=== PATIENT | female | born 1960 | race Hispanic/Latino ===

== ENCOUNTER 2016-11-24 13:57 | Emergency (ER) | payer MEDICARE ==
[2016-11-24 13:57] VITALS: BMI 36.9
[2016-11-24 14:47] VITALS: BP 156/91; TEMP 98.2
[2016-11-24] MEDS ORDERED: Albuterol-Ipratrop 3 mg / 0.5 (3 ml) UD ONE (15:20)
[2016-11-24] MEDS: Albuterol-Ipratrop 3 mg / 0.5 (3 ml) UD IH SCH ×2 (15:21→15:30)
[2016-11-24 15:31] LABS: BASO % 0.4 % (0.0-2.0); EOS # 0.3 K/uL (0.0-0.7); HEMATOCRIT 36.4 % (34.0-47.0); LYMPH # 2.3 K/uL (1.0-4.3); LYMPH % 25.1 % (20.0-40.0); MEAN CORPUSCULAR HEMOGLOBIN 26.7 pg (27.0-31.0); MEAN CORPUSCULAR HGB CONC 31.9 g/dL (33.0-37.0); MONO # 0.6 K/uL (0.0-0.8); MONO % 6.9 % (0.0-10.0); RED CELL DISTRIBUTION WIDTH 14.3 % (11.5-14.5); WHITE BLOOD COUNT 9.2 K/uL (4.8-10.8)
[2016-11-24 15:32] VITALS: RESP 20
[2016-11-24 15:36] LABS: MEAN CELL VOLUME 83.8 fL (81.0-99.0)
[2016-11-24 15:45] LABS: CHLORIDE 106 mmol/L (98-107); POTASSIUM 3.9 mmol/L (3.6-5.2); SODIUM 140 mmol/L (132-148)
[2016-11-24 15:48] LABS: ALKALINE PHOSPHATASE 144 U/L (38-126); ALT/SGPT 74 U/L (9-52); AST/SGOT 60 U/L (14-36); BILIRUBIN,TOTAL 0.5 mg/dL (0.2-1.3); BLOOD UREA NITROGEN 11 mg/dL (7-17); CARBON DIOXIDE 22 mmol/L (22-30); GFR AFRICAN-AMERICAN > 60; GLUCOSE,RANDOM 83 mg/dL (65-105)
[2016-11-24 15:49] LABS: CALCIUM 9.2 mg/dl (8.6-10.4)
--- NOTE | 2016-11-24 15:50 | C.PDOC ---
History Of Present Illness 56 year old female whose past medical history includes anemia, anxiety, hypertension, COPD, diabetes, presents to the emergency department complaining of shortness of breath and cough with associated chest pain that has been occurring intermittently for the past 2 weeks and worsened the past 2 days. Patient states she was seen by her PCP last week and sent for CT of chest, is awaiting the results. Denies any fever, chills, night sweats, dizziness, numbness or weakness. Time Seen by Provider: 11/24/16 15:06 Chief Complaint (Nursing): Chest Pain History Per: Patient History/Exam Limitations: no limitations Onset/Duration Of Symptoms: Days Current Symptoms Are (Timing): Worse Current Respiratory Medications: None Severity: Moderate Associated Symptoms: denies: Fever, Chills, Dizziness Recent travel outside of the [place]: No Past Medical History Reviewed: Historical Data, Nursing Documentation, Vital Signs Vital Signs: Last Vital Signs Temp 98.2 F 11/24/16 14:44 Pulse 85 11/24/16 17:08 Resp 20 11/24/16 17:08 BP 156/91 H 11/24/16 14:44 Pulse Ox 97 11/24/16 17:08 - Medical History PMH: Anemia, Anxiety, Asthma, Bipolar Disorder, Bronchitis, COPD, Depression, Diabetes, Emphysema, Gastritis, HTN, Hypercholesterolemia, Hypothyroidism, Malignancy (uterine and breast ca) Surgical History: Cholecystectomy - [facility] Procedures CHOLECYSTECTOMY (12/21/13) ENDOSCOPIC BRONCHIAL BX (06/26/14) ESOPHAGOGASTRODUODENOSCOPY [EGD] W/CLOSED BIOPSY (12/11/13) INDIVID PSYCHOTHERAP NEC (12/25/14) NON-INVASIVE MECHANICAL VENTILATION (07/24/13) OP RED-INT FIX TIB/FIBUL (07/24/13) OPEN ROBOTIC ASSISTED PROCEDURE (12/21/13) OTHER BRONCHOSCOPY (04/03/13) OTHER GROUP THERAPY (12/25/14) PSYCHIAT DRUG THERAP NEC (01/07/15) Family History: States: Unknown Family Hx - Social History Hx Tobacco Use: No Hx Alcohol Use: Yes Hx Substance Use: No - Immunization History Hx Tetanus Toxoid Vaccination: No Hx Influenza Vaccination: No Hx Pneumococcal Vaccination: Yes Review Of Systems Constitutional: Negative for: Fever, Chills, Sweats Cardiovascular: Positive for: Chest Pain Respiratory: Positive for: Cough, Shortness of Breath Neurological: Negative for: Weakness, Numbness, Dizziness Physical Exam - Physical Exam Appears: Non-toxic, No Acute Distress Skin: Warm, Dry, No Rash Head: Atraumatic, Normacephalic Neck: Normal, Normal ROM, Supple Chest: Symmetrical Cardiovascular: Rhythm Regular, No Murmur Respiratory: No Rales, Rhonchi (scattered), Wheezing (expiratory) Gastrointestinal/Abdominal: Normal Exam, Soft, No Tenderness Extremity: No Pedal Edema Extremity: Bilateral: Atraumatic Neurological/Psych: Oriented x3, Normal Speech, Normal Cognition ED Course And Treatment - Laboratory Results Result Diagrams: 11/24/16 15:28 11/24/16 15:28 O2 Sat by Pulse Oximetry: 98 (room air) Pulse Ox Interpretation: Normal Medical Decision Making Medical Decision Making: Impression: 56 y.o female PMH COPD with acute cough and SOB Prior records reviewed, patient had outpatient CT chest without contrast on 11/18 showing no evidence of acute pulmonary disease, no significant emphysematous changes, mild central bronchiectasis. Plan: * EKG * CXR * Labs * jg Sanchesujosselyn Progress: EKG shows NS at 77bpm with normal axis and no acute changes. CXR shows no infiltrate, no pleural effusion, no pneumothorax Labs reviewed no leukocytosis or acute findings Upon reevaluation patient has no fever and reports feeling mildly better. Lung sounds have improved and O2 saturation is adequate. Discussed results from this visit and the CT findings from other day. Patient is asking for Rx and was instructed to follow up with PCP Disposition - Disposition Disposition: HOME/ ROUTINE Disposition Time: 16:50 Condition: IMPROVED Additional Instructions: Please follow up with your primary doctor, take medications as prescribed Prescriptions: Azithromycin [Zithromax] 250 mg PO DAILY #4 tab Azithromycin [Zithromax] 250 mg PO DAILY #4 tab Benzonatate [Tessalon Perles] 100 mg PO TID #30 sgl Omeprazole 40 mg PO DAILY #30 capsule. Prednisone 50 mg PO DAILY #5 tablet Instructions: COPD (Chronic Obstructive Pulmonary Disease) (DC) - POA Present On Arrival: None - Clinical Impression Clinical Impression: Pleuritic pain, COPD (chronic obstructive pulmonary disease) - PA / SENIOR MANAGING DIRECTOR / Resident Statement MD/DO has reviewed & agrees with the documentation as recorded. - Scribe Statement The provider has reviewed the documentation as recorded by the Scribleyda ayala All medical record entries made by the [place] were at my direction and personally dictated by me. I have reviewed the chart and agree that the record accurately reflects my personal performance of the history, physical exam, medical decision making, and the department course for this patient. I have also personally directed, reviewed, and agree with the discharge instructions and disposition.
--- NOTE | 2016-11-24 16:13 | RAD ---
PROCEDURE: CHEST RADIOGRAPH, 1 VIEW HISTORY: cough COMPARISON: 03/02/2016 FINDINGS: LUNGS: There is mild haziness at the lung bases suggesting some mild volume loss. A portion of this density may be related to overlying soft tissue. No new infiltrate is clearly seen. PLEURA: No pneumothorax or pleural fluid seen. CARDIOVASCULAR: Normal. OSSEOUS STRUCTURES: No significant abnormalities. VISUALIZED UPPER ABDOMEN: Normal. OTHER FINDINGS: None. IMPRESSION: Mild haziness at the lung bases suggesting mild volume loss or overlying soft tissue. No new infiltrate.
[2016-11-24 17:09] VITALS: PULSE 85
[2016-11-26 10:16] VITALS: O2SAT 98
== END 2016-11-24 17:08 | disposition home or self-care (01) ==
LOC: C.ER 13:57
DX: J44.9 Chronic obstructive pulmonary disease, unspecified (principal); R07.81 Pleurodynia
CPT/HCPCS: 71010; 80053; 83880; 85025; 96374; 99285; J2930

== ENCOUNTER 2017-02-11 10:53 | Observation (INO) | payer MEDICARE ==
[2017-02-11 10:53] VITALS: BMI 36.9
[2017-02-11] MEDS ORDERED: Sodium Chloride 0.9% 1,000 ML IV ONE (11:33)
--- NOTE | 2017-02-11 11:37 | C.PDOC ---
History Of Present Illness 56 year old female presents to the ED with complaints of dizziness, blurred vision, sweats, and itching burning rash to chest for two and a half weeks. Patient was sent by Dr. Elizabeth for evaluation. She reports not feeling well and room spinning sensation. She also reports diarrhea began three days ago and used Cortisone and bleach for rash. Patient denies headache, nausea, or vomiting. PMH includes anemia, anxiety, asthma, hypertension, hypothyroidism, breast cancer, uterine cancer, COPD, depression, diabetes, emphysema, and gastritis. Time Seen by Provider: 02/11/17 11:20 Chief Complaint (Nursing): Dizziness/Lightheaded History Per: Patient History/Exam Limitations: no limitations Onset/Duration Of Symptoms: Hrs Current Symptoms Are (Timing): Still Present Seizure Or Post-ictal Symptoms: None Fall Associated With With Symptoms: No Recent travel outside of the [place]: No Additional History Per: Prior Records (Dr. Elizabeth ) Past Medical History Reviewed: Historical Data, Nursing Documentation, Vital Signs Vital Signs: Last Vital Signs Temp 98.0 F 02/11/17 11:08 Pulse 71 02/11/17 15:18 Resp 15 02/11/17 15:18 BP 117/66 02/11/17 15:18 Pulse Ox 97 02/11/17 15:20 - Medical History PMH: Anemia, Anxiety, Asthma, Bipolar Disorder, Bronchitis, COPD, Depression, Diabetes, Emphysema, Gastritis, HTN, Hypercholesterolemia, Hypothyroidism, Malignancy (uterine and breast ca), Seizures Surgical History: Cholecystectomy - [facility] Procedures CHOLECYSTECTOMY (12/21/13) ENDOSCOPIC BRONCHIAL BX (06/26/14) ESOPHAGOGASTRODUODENOSCOPY [EGD] W/CLOSED BIOPSY (12/11/13) INDIVID PSYCHOTHERAP NEC (12/25/14) NON-INVASIVE MECHANICAL VENTILATION (07/24/13) OP RED-INT FIX TIB/FIBUL (07/24/13) OPEN ROBOTIC ASSISTED PROCEDURE (12/21/13) OTHER BRONCHOSCOPY (04/03/13) OTHER GROUP THERAPY (12/25/14) PSYCHIAT DRUG THERAP NEC (01/07/15) Family History: States: Unknown Family Hx - Social History Hx Tobacco Use: No Hx Alcohol Use: Yes Hx Substance Use: No - Immunization History Hx Tetanus Toxoid Vaccination: No Hx Influenza Vaccination: No Hx Pneumococcal Vaccination: No Review Of Systems Constitutional: Positive for: Sweats. Negative for: Fever, Chills Eyes: Positive for: Vision Change (blurred vision ) Cardiovascular: Negative for: Chest Pain Respiratory: Negative for: Shortness of Breath Gastrointestinal: Positive for: Diarrhea. Negative for: Nausea, Vomiting, Abdominal Pain Genitourinary: Negative for: Dysuria Skin: Positive for: Rash Neurological: Positive for: Dizziness. Negative for: Headache Physical Exam - Physical Exam Appears: Non-toxic, No Acute Distress, Other (Patient appears anxious ) Skin: Warm, Dry, Rash (erythematus papular rash to mid-upper chest wall ) Head: Atraumatic Eye(s): bilateral: Normal Inspection, PERRL, EOMI, Other (nystagmus ) Nose: Normal Oral Mucosa: Moist Neck: Supple Chest: Symmetrical, No Deformity Cardiovascular: Rhythm Regular, No Murmur Respiratory: Normal Breath Sounds, No Rales, No Rhonchi, No Wheezing Gastrointestinal/Abdominal: Soft, No Tenderness, No Distention, No Guarding, No Rebound Extremity: Normal ROM, No Tenderness, No Deformity, No Swelling Neurological/Psych: Oriented x3, Normal Speech, Normal Cranial Nerves, Cerebellar Signs Gait: Unable To Assess ED Course And Treatment - Laboratory Results Result Diagrams: 02/11/17 11:48 02/11/17 11:48 Lab Interpretation: No Acute Changes ECG: Interpreted By Me, Viewed By Ut ECG Rhythm: Sinus Rhythm Rate From EC O2 Sat by Pulse Oximetry: 97 (room air ) Pulse Ox Interpretation: Normal - CT Scan/US Head CT W/O contrast Other Rad Studies (CT/US): Read By Radiologist, Radiology Report Reviewed CT/US Interpretation: FINDINGS: HEMORRHAGE: No intracranial hemorrhage. BRAIN : There are mild chronic microangiopathic changes. There is no mass, mass effect or abnormal extra-axial fluid collection. Mccullough-white matter differentiation is preserved. VENTRICLES: The ventricles are normal in size, shape and configuration. CALVARIUM: There is moderate hyperostosis frontalis interna. PARANASAL SINUSES: There is mild mucosal thickening in the right inferior frontal sinus and fluid level in the left sphenoid chamber. Status post endoscopic sinus surgery. MASTOID AIR CELLS: Predominantly clear. OTHER FINDINGS: None. IMPRESSION: No acute intracranial abnormality. Progress Note: Head CT w/o contrast, EKG, UA and blood work were ordered. Patient was given Reglan and IV fluids. Medical Decision Making Medical Decision Making: Impression: dizziness Plan: * EKG * Labs * CT head Progress: All diagnostics reviewed with no acute findings. Plan is to order MRI, however patient refused stating she wants to do open MRI which is unavailable. [id number] Elizabeth who wants patient admitted. Disposition - Disposition Disposition: HOSPITALIZED Disposition Time: 15:25 Condition: STABLE - POA Present On Arrival: None - Clinical Impression Clinical Impression: Dizziness, Ataxia - PA / BLOW TORCH BURNER / Resident Statement MD/DO has reviewed & agrees with the documentation as recorded. - Scribe Statement The provider has reviewed the documentation as recorded by the Scribe Janet Garner All medical record entries made by the Scribe were at my direction and personally dictated by me. I have reviewed the chart and agree that the record accurately reflects my personal performance of the history, physical exam, medical decision making, and the department course for this patient. I have also personally directed, reviewed, and agree with the discharge instructions and disposition. Decision To Admit - Pt Status Changed To: Hospital Disposition Of: Observation - . Bed Request Type: Regular Admitting Physician: Benny Elizabeth Patient Diagnosis: Dizziness, Ataxia
[2017-02-11 11:53] LABS: BASO % 0.3 % (0.0-2.0); EOS # 0.3 K/uL (0.0-0.7); EOS % 3.5 % (0.0-4.0); HEMATOCRIT 37.5 % (34.0-47.0); LYMPH # 1.8 K/uL (1.0-4.3); LYMPH % 22.5 % (20.0-40.0); MEAN CORPUSCULAR HGB CONC 32.5 g/dL (33.0-37.0); MEAN PLATELET VOLUME 9.1 fL (7.2-11.7); MONO # 0.5 K/uL (0.0-0.8); MONO % 6.4 % (0.0-10.0); RED CELL DISTRIBUTION WIDTH 14.6 % (11.5-14.5); WHITE BLOOD COUNT 7.8 K/uL (4.8-10.8)
[2017-02-11 11:59] LABS: RBC URINE 1 /hpf (0-3); URINE BACTERIA RARE (<OCC); URINE BILIRUBIN NEGATIVE (NEGATIVE); URINE BLOOD NEGATIVE (NEGATIVE); URINE COLOR Yellow (YELLOW); URINE GLUCOSE (UA) NORMAL (Normal); URINE KETONE NEGATIVE (NEGATIVE); URINE LEUKOCYTE ESTERASE NEG Leu/uL (Negative); URINE PROTEIN NEGATIVE (NEGATIVE); URINE UROBILINOGEN NORMAL mg/dL (0.2-1.0); WBC URINE 4 /hpf (0-5)
[2017-02-11 12:03] LABS: CHLORIDE 107 mmol/L (98-107)
[2017-02-11 12:05] LABS: SODIUM 139 mmol/L (132-148)
[2017-02-11 12:07] LABS: ALB/GLOB RATIO 1.1 (1.0-2.1); ALKALINE PHOSPHATASE 124 U/L (38-126); AST/SGOT 71 U/L (14-36); BILIRUBIN,TOTAL 0.7 mg/dL (0.2-1.3); BLOOD UREA NITROGEN 12 mg/dL (7-17); CARBON DIOXIDE 19 mmol/L (22-30); CHOLESTEROL 184 mg/dL (0-199); GFR AFRICAN-AMERICAN > 60; GLUCOSE,RANDOM 121 mg/dL (65-105); TOTAL PROTEIN 7.9 g/dL (6.3-8.3)
[2017-02-11 12:08] LABS: ALT/SGPT 129 U/L (9-52); CALCIUM 8.6 mg/dl (8.6-10.4)
[2017-02-11] MEDS ORDERED: Sodium Chloride 0.9% 1,000 ML ONE (12:08)
--- NOTE | 2017-02-11 12:41 | CT ---
PROCEDURE: CT HEAD WITHOUT CONTRAST. HISTORY: dizziness COMPARISON: 03/31/2014. TECHNIQUE: Axial computed tomography images were obtained through the head/brain without intravenous contrast. Radiation dose: Total exam DLP = 933.63 mGy-cm. This CT exam was performed using one or more of the following dose reduction techniques: Automated exposure control, adjustment of the mA and/or kV according to patient size, and/or use of iterative reconstruction technique. FINDINGS: HEMORRHAGE: No intracranial hemorrhage. BRAIN: There are mild chronic microangiopathic changes. There is no mass, mass effect or abnormal extra-axial fluid collection. Mccullough-white matter differentiation is preserved. VENTRICLES: The ventricles are normal in size, shape and configuration. CALVARIUM: There is moderate hyperostosis frontalis interna. PARANASAL SINUSES: There is mild mucosal thickening in the right inferior frontal sinus and fluid level in the left sphenoid chamber. Status post endoscopic sinus surgery. MASTOID AIR CELLS: Predominantly clear. OTHER FINDINGS: None. IMPRESSION: No acute intracranial abnormality.
[2017-02-11 12:43] LABS: THYROID STIMULATING HORMONE 0.73 mIU/L (0.46-4.68)
[2017-02-11 16:36] VITALS: RESP 20
[2017-02-11] MEDS ORDERED: Hydrocortisone 1% Cream (30 GM) TOP PRN (18:30)
[2017-02-11] MEDS ORDERED: Sodium Chloride 0.9% 1,000 ML IV SCH (18:45)
[2017-02-11] MEDS: (Novolin R) Insulin Human Regular 100 units/ml vial SC SCH (21:20)
[2017-02-12] MEDS: Levothyroxine 125 MCG TAB PO SCH (05:54)
[2017-02-12] MEDS: (Novolin R) Insulin Human Regular 100 units/ml vial SC SCH ×4 (07:49→21:22)
[2017-02-12] MEDS: Tiotropium 18 mcg Cap For Inhalation INH SCH (09:00)
[2017-02-12] MEDS ORDERED: Levothyroxine 125 MCG TAB PO SCH (10:00)
[2017-02-12] MEDS ORDERED: Gadodiamide 287 mg/ml 20 ml IV ONE (10:59)
--- NOTE | 2017-02-12 11:01 | MRI ---
PROCEDURE: Magnetic Resonance Angiography Brain HISTORY: dizziness, cerebellar signs COMPARISON: None available. TECHNIQUE: 3D time of flight MR angiography of the intracranial arteries was performed. Rotating maximum intensity projection images were generated. FINDINGS: INTERNAL CEREBRAL ARTERIES: Unremarkable. The skull base, petrous, cavernous and supraclinoid segments are bilaterally widely patient. ANTERIOR CEREBRAL ARTERIES: Unremarkable. A1 and A2 segments are widely patent. Smaller distal branches unremarkable, as visualized. MIDDLE CEREBRAL ARTERIES: Unremarkable. M1 and M2 segments are widely patent. Perisylvian branches grossly symmetric. POSTERIOR CIRCULATION: Basilar Artery: Unremarkable. Distal Vertebral Arteries: Unremarkable. Posterior Cerebral Arteries: Unremarkable. Posterior Inferior Cerebellar Arteries: Not identified in this exam. ANEURYSM/ VASCULAR MALFORMATIONS: None. OTHER FINDINGS: None. IMPRESSION: Unremarkable MR angiography of the brain.
--- NOTE | 2017-02-12 11:34 | MRI ---
PROCEDURE: MRI BRAIN WITH AND WITHOUT CONTRAST HISTORY: cerebellar ataxia COMPARISON: Head CT 02/11/2017. TECHNIQUE: Multiplanar, multisequence MR images of the brain were obtained with and without intravenous contrast enhancement. 18 cc of Omniscan was administered intravenously. FINDINGS: HEMORRHAGE: None DWI: No evidence of an acute or early subacute infarction. BRAIN PARENCHYMA: Limited white matter increased long TR signal abnormality is appreciated in the periventricular spaces as well as minimally at the bilateral centrum semiovale and occasional subcortical white matter of the cerebrum in a pattern that suggests likely early chronic microangiopathy. Following intravenous demonstration, there is no abnormal enhancement within the intra or extra-axial spaces above or below the tentorium including throughout the brainstem. There is no mass effect and the sulci and cisterns appear unremarkable diffusely. Limited diffuse cerebral atrophy is identified on the basis of expansion of the overall extra-axial spaces and the ventricular system. ENHANCEMENT: No abnormal intracranial enhancement. VENTRICLES: Unremarkable. No hydrocephalus. CRANIUM: Unremarkable. ORBITS: Grossly unremarkable. PARANASAL SINUSES/MASTOIDS: Limited sinus disease is seen at multiple anterior middle ethmoid air cell as well as the right frontal sinus. VASCULAR SYSTEM: Skull base flow voids intact. OTHER FINDINGS: None . IMPRESSION: No acute intracranial findings. No abnormal intracranial enhancement. Limited chronic microangiopathy and minimal diffuse cerebral atrophy.
--- NOTE | 2017-02-12 17:26 | CP.PCM.PN ---
Subjective - Date & Time of Evaluation Date of Evaluation: 02/12/17 Time of Evaluation: 17:22 - Subjective Subjective: PT SEEN TODAY. HAS MULTIPLE C/O: INTERMITTENT DIZZINESS X3 MONTHS (ADMITS TO SIMILAR EPISODES 2 YEARS AGO BUT DOES NOT REMEMBER DIAGNOSIS OR TREATMENT) AND WATERY, NON-BLOODY STOOL X4-5 DAYS. AAOX3; BS CTA B/L, EASY BREATHS; REG RHYTHM, NO PEDAL EDEMA; ABD SOFT, NT, ND; GAIT STEADY, SPEECH CLEAR. AWAITING NEURO CONSULT TO EVAL PT. MECLIZINE PRN. STOOL O AND P; WBC; C-DIF. AM LABS ORDERED. DISCUSSED WITH GOLD TOOLER. POSS D/C AFTER EVAL BY DR. MEENU MOCTEZUMA OR TOMORROW. NO FURTHER ORDERS. Objective - Vital Signs/Intake and Output Vital Signs (last 24 hours): Temp Pulse Resp BP Pulse Ox 98.1 F 77 20 130/79 98 02/12/17 16:00 02/12/17 16:00 02/12/17 16:00 02/12/17 16:00 02/12/17 16:00 Intake and Output: 02/12/17 02/12/17 06:59 18:59 Intake Total 2500 500 Balance 2500 500 - Medications Medications: Current Medications Clonazepam (Klonopin) 0.5 mg PO DAILY [facility] Last Admin: 02/12/17 09:26 Dose: 0.5 mg Famotidine (Pepcid) 20 mg PO DAILY [facility] Last Admin: 02/12/17 09:26 Dose: 20 mg Heparin Sodium (Porcine) (Heparin) 5,000 units SC Q12 [facility] Last Admin: 02/12/17 09:28 Dose: 5,000 units Hydrocortisone (Cortizone 1% Cream) 0 gm TOP DAILY PRN PRN Reason: Itching / Pruritus Hydroxyzine HCl (Atarax) 10 mg PO QID PRN PRN Reason: Itching / Pruritus Insulin Human Regular (Novolin R) 0 unit SC ACHS [facility] PRN Reason: Protocol Last Admin: 02/12/17 12:02 Dose: Not Given Levothyroxine Sodium (Synthroid) 125 mcg PO DAILY@0630 [facility] Last Admin: 02/12/17 05:54 Dose: 125 mcg Metformin HCl (Glucophage) 500 mg PO BIDCC [facility] Last Admin: 02/12/17 08:02 Dose: 500 mg Quetiapine Fumarate (Seroquel) 200 mg PO BID [facility] Last Admin: 02/12/17 09:27 Dose: 200 mg Rosuvastatin Calcium (Crestor) 5 mg PO HS [facility] Last Admin: 02/11/17 21:15 Dose: 5 mg Tiotropium [place] (Spiriva) 18 mcg INH RQ24 [facility] Last Admin: 02/12/17 09:00 Dose: 18 mcg Topiramate (Topamax) 100 mg PO DAILY [facility] Last Admin: 02/12/17 09:27 Dose: 100 mg
--- NOTE | 2017-02-12 18:45 | CARD ---
APPROVED REPORT EKG Measurement Heart [id number] IN [id number] <Conclusion> Normal sinus rhythm Normal ECG
--- NOTE | 2017-02-13 02:53 | CON ---
NEUROSURGERY CONSULTATION REFERRING PHYSICIAN: Dr. Elizabeth. REASON FOR CONSULTATION: Unsteadiness and dizziness. HISTORY: The patient is a 56-year-old right-handed pleasant lady with past medical history of schizophrenia, arthritis,diabetes, anemia, anxiety, asthma, hypertension, hypothyroidism, breast cancer, uterine cancer, COPD, depression, diabetes, emphysema, and gastritis. The patient was admitted because of dizziness described as a spinning of the head or surrounding, mostly when she gets off the bed and in the morning and having tendency to fall. The patient stated, "I am floating in the air, I feel I have no legs." Also associated with unsteadiness and tendency to fall, the patient is walking with support of the wall. The patient's symptoms started few months ago and it is on and off, not constant, also aggravated by turning head to the right or to the left. The patient did not seek medical attention until recently. The patient has a similar episode few years ago and lasted several weeks and then improved. The patient denies any photophobia, phonophobia, and numbness, tingling, or weakness of upper or lower extremities. PAST MEDICAL HISTORY: As mentioned above. SOCIAL HISTORY: Nonsmoker. No ethanol or drug abuser. ALLERGIES: NO KNOWN ALLERGIC REACTIONS TO MEDICATIONS. MEDICATIONS: Hydroxizine, hydrocortisone, rosuvastatin, metformin, heparin, clonazepam p.r.n. at home, insulin, levothyroxine, topiramate. REVIEW OF SYSTEMS: As per H and P and ER notes, reviewed. PHYSICAL EXAMINATION: VITAL SIGNS: Blood pressure 121/72, pulse 77, respirations 20. MENTAL STATUS: The patient is alert, awake, and oriented x3. Normal naming, repetition and comprehension. No agnosia, no apraxia. No right to left confusion. No finger agnosia. CRANIAL NERVES EXAMINATION: Pupils 3 mm right, reactive. No nystagmus. No double vision. No field defect. Tongue midline. Gag intact. Accessory nerve intact. No facial palsy. NECK: Supple. MOTOR: Normal tone in upper and lower extremities. No facial droop. No tremors, action, rest. Upper extremity deltoid, elbow meat packer 5/5. Lower extremities; hip flexion, knee flexion and extension, ankle 5/5. Deep tendon reflexes 1 to 2 in upper and lower extremities. Plantar flexion on both sides. SENSORY: Pinprick, light touch, symmetrical. Coordination and [id number] intact. Roberg deferred. DIAGNOSTIC DATA: MRI of the brain did not reveal acute finding consistent with periventricular white matter disease. No acute findings. Carotid Doppler, official report pending. MRA of the brain did not reveal significant stenosis. IMPRESSION: The patient's findings are consistent with benign paroxysmal positional vertigo. The patient will benefit with combination of meclizine and benzodiazepine. The patient is already on clonazepam at home. I will start the patient on Clonopin 0.5 mg b.i.d. and meclizine t.i.d. p.r.n. for the next few days. The patient will need vestibular therapy as an outpatient after discharge. Neurologic-fong, no further workup recommended and follow up the carotid Doppler. If needed, I can be called or Dr. Bhandari will be back on Wednesday. Thank you for the consultation. Stefan Rodríguez MD
[2017-02-13] MEDS: Levothyroxine 125 MCG TAB PO SCH (06:00)
[2017-02-13 07:54] VITALS: BP 120/80; PULSE 75; TEMP 98.1; O2SAT 95
[2017-02-13] MEDS: Tiotropium 18 mcg Cap For Inhalation INH SCH (08:03)
[2017-02-13 08:33] LABS: HEMATOCRIT 35.1 % (34.0-47.0); MEAN CORPUSCULAR HEMOGLOBIN 27.3 pg (27.0-31.0); MEAN CORPUSCULAR HGB CONC 32.8 g/dL (33.0-37.0); MEAN PLATELET VOLUME 9.5 fL (7.2-11.7); RED CELL DISTRIBUTION WIDTH 14.9 % (11.5-14.5); WHITE BLOOD COUNT 7.7 K/uL (4.8-10.8)
[2017-02-13] MEDS: (Novolin R) Insulin Human Regular 100 units/ml vial SC SCH ×2 (08:35→12:25)
[2017-02-13 08:50] LABS: CHLORIDE 108 mmol/L (98-107); POTASSIUM 4.6 mmol/L (3.6-5.2); SODIUM 141 mmol/L (132-148)
[2017-02-13 08:53] LABS: BLOOD UREA NITROGEN 11 mg/dL (7-17); CARBON DIOXIDE 23 mmol/L (22-30); GFR AFRICAN-AMERICAN > 60; GLUCOSE,RANDOM 97 mg/dL (65-105)
[2017-02-13 08:54] LABS: CALCIUM 8.9 mg/dl (8.6-10.4)
[2017-02-13 13:40] LABS: C DIFF TOXIN A B NEGATIVE (NEGATIVE)
[2017-02-13 18:45] LABS: FECAL LEUKOCYTES NEGATIVE (NEGATIVE)
--- NOTE | 2017-02-15 10:02 | VASCLAB ---
PROCEDURE: HISTORY: dizziness COMPARISON: None available. TECHNIQUE: Grayscale and duplex Doppler evaluation of the cervical carotid and vertebral arteries were performed. The common carotid, carotid bifurcations and cervical Internal Carotid Artery (ICA) and proximal External Carotid Artery (ECA) were evaluated. The vertebral arteries were evaluated for gross patency and flow direction. Report prepared by Fernando Chacon, BS, RVT FINDINGS: RIGHT CAROTID ARTERIES: 1. Common Carotid Artery: No significant focal plaque formation of the right common carotid artery. Maximum Peak Systolic velocity: 62 cm/sec: End-diastolic velocity 16 cm/sec. 2. Carotid Bifurcation: plaque formation. Maximum Peak Systolic velocity: 56 cm/sec: End-diastolic velocity 14 cm/sec. 3. Internal Carotid Artery: Plaque description: 3.1. Proximal Segment: Peak systolic velocity 76 cm/sec: End-diastolic velocity 26 cm/sec - % stenosis 0-15% 3.2. Middle Segment: Peak systolic velocity 71 cm/sec: End-diastolic velocity 24 cm/sec - % stenosis 0-15% 3.3. Distal Segment: Peak systolic velocity 61 cm/sec: End-diastolic velocity 21 cm/sec - % stenosis 0-15% 4. External Carotid Artery: No significant focal plaque formation. Peak systolic velocity 96 cm/sec 5. ICA/CCA Ratio: 1.2 LEFT CAROTID ARTERIES: 1. Common Carotid Artery: No significant focal plaque formation of the left common carotid artery. Maximum Peak Systolic velocity: 54 cm/sec: End-diastolic velocity 15 cm/sec. 2. Carotid Bifurcation: plaque formation. Maximum Peak Systolic velocity: 51 cm/sec: End-diastolic velocity 15 cm/sec. 3. Internal Carotid Artery: Plaque description: 3.1. Proximal Segment: Peak systolic velocity 85 cm/sec: End-diastolic velocity 28 cm/sec - % stenosis 0-15% 3.2. Middle Segment: Peak systolic velocity 82 cm/sec: End-diastolic velocity 31 cm/sec - % stenosis 0-15% 3.3. Distal Segment: Peak systolic velocity 40 cm/sec: End-diastolic velocity 15 cm/sec - % stenosis 0-15% 4. External Carotid Artery: No significant focal plaque formation. Peak systolic velocity 60 cm/sec 5. ICA/CCA Ratio: 1.6 VERTEBRAL ARTERIES: 1. Right Vertebral Artery: The right vertebral artery flow direction is antegrade. 2. Left Vertebral Artery: The left vertebral artery flow direction is antegrade. OTHER FINDINGS: 1. Right Brachial Blood pressure: 136 mmHg. 2. Left Brachial Blood pressure: 134 mmHg. IMPRESSION: RIGHT: Duplex scan does not suggest hemodynamically significant stenosis of the right extracranial carotid arteries. LEFT: Duplex scan does not suggest hemodynamically significant stenosis of the left extracranial carotid arteries.
--- NOTE | 2017-02-15 17:34 | CP.PCM.PN ---
Subjective - Date & Time of Evaluation Date of Evaluation: 02/13/17 Time of Evaluation: 15:00 - Subjective Subjective: PT CLEARED BY NEURO FOR OP F/U AND FURTHER W/U. PT TO SEE DR. MANJARREZ IN THE OFFICE. TO ALSO SEE PMD OR DR. CORRIGAN IN THE OFFICE. ALL D/C INSTRUCTIONS AND RX DISCUSSED WITH PT. NO FURTHER ORDERS. Objective - Vital Signs/Intake and Output Vital Signs (last 24 hours): Temp Pulse Resp BP Pulse Ox 98.1 F 75 20 120/80 95 02/13/17 07:52 02/13/17 07:52 02/13/17 07:52 02/13/17 07:52 02/13/17 07:52 - Labs Labs: 02/13/17 08:18 02/13/17 08:18
== END 2017-02-13 15:47 | disposition home or self-care (01) ==
LOC: C.ER 10:53 → C.9E 14:18 → C.3T 14:46
PROVIDERS: ADMIT Internal Medicine; ATTEND Internal Medicine
DX: H81.10 Benign paroxysmal vertigo, unspecified ear (principal); J44.9 Chronic obstructive pulmonary disease, unspecified; E11.9 Type 2 diabetes mellitus without complications; I10 Essential (primary) hypertension; E03.9 Hypothyroidism, unspecified; Z85.42 Personal history of malignant neoplasm of other parts of uterus; Z85.3 Personal history of malignant neoplasm of breast; Z79.4 Long term (current) use of insulin
CPT/HCPCS: 36415; 70450; 70544; 70552; 80048; 80053; 80061; 81001; 82948; 84439; 84443; 85025; 85027; 85651; 87040; 87070; 87230; 89055; 93005; 93880; 94640; 96360; 96374; 97116; 97162; 99285; G0378; G0480; G8978; G8979; J1644; J2060; J2765; J7040; Q0177

== ENCOUNTER 2017-09-21 07:07 | Emergency (ER) | payer MEDICARE ==
[2017-09-21 07:08] VITALS: BMI 37.3
[2017-09-21] MEDS ORDERED: Sodium Chloride 0.9% 500 ML IV ONE ×2 (08:20→09:01)
[2017-09-21 09:13] LABS: BASO % 0.2 % (0.0-2.0); EOS % 0.1 % (0.0-4.0); HEMOGLOBIN 12.3 g/dL (11.0-16.0); LYMPH # 1.3 K/uL (1.0-4.3); LYMPH % 6.8 % (20.0-40.0); MEAN CELL VOLUME 80.7 fL (81.0-99.0); MEAN CORPUSCULAR HEMOGLOBIN 26.7 pg (27.0-31.0); MEAN CORPUSCULAR HGB CONC 33.1 g/dL (33.0-37.0); MEAN PLATELET VOLUME 9.5 fL (7.2-11.7); MONO # 1.3 K/uL (0.0-0.8); MONO % 7.1 % (0.0-10.0); NEUT % 85.8 % (50.0-75.0); PLATELET COUNT 220 K/uL (130-400); RBC 4.62 Mil/uL (3.80-5.20); RED CELL DISTRIBUTION WIDTH 14.6 % (11.5-14.5); WHITE BLOOD COUNT 18.6 K/uL (4.8-10.8)
[2017-09-21 09:30] LABS: GFR AFRICAN-AMERICAN > 60; GFR NON-AFRICAN AMERICAN > 60
[2017-09-21 09:31] LABS: CALCIUM 9.3 mg/dl (8.6-10.4)
[2017-09-21 09:34] LABS: BLOOD UREA NITROGEN 11 mg/dL (7-17)
[2017-09-21 09:46] LABS: EOSINOPHIL 1 % (0-4); LYMPHOCYTE 8 % (20-40); MONOCYTE 10 % (0-10); NEUTROPHIL 81 % (50-75); TOTAL CELLS COUNTED 100
[2017-09-21 09:47] LABS: PLATELET ESTIMATE NORMAL (NORMAL)
[2017-09-21 09:55] LABS: SQUAMOUS EPITHIAL 5 /hpf (0-5); URINE BILIRUBIN NEGATIVE (NEGATIVE); URINE BLOOD NEGATIVE (NEGATIVE); URINE CLARITY Hazy (Clear); URINE COLOR Yellow (YELLOW); URINE GLUCOSE (UA) NORMAL (Normal); URINE LEUKOCYTE ESTERASE NEG Leu/uL (Negative); URINE PROTEIN 1+ mg/dL (NEGATIVE); URINE UROBILINOGEN NORMAL mg/dL (0.2-1.0)
--- NOTE | 2017-09-21 10:03 | C.PDOC ---
History Of Present Illness 57 y/o female, w/PMhx of COPD and asthma, presents to the ER complaining of fever, cough, sore throat, headache, and body aches which have been present for the past 2 days. Patient states that her Tmax was 103.7 F. Patient reports that she had a flu vaccine 2x. She denies having nausea, vomiting, and diarrhea. HPI: Influenza Time Seen by Provider: 09/21/17 08:09 Chief Complaint: Flu-like Symptoms History Per: Patient Exam Limitations: no limitations Onset/Duration Of Symptoms: Days Symptoms include: fever, headache, bodyaches, sore throat, cough. denies: vomiting, diarrhea Risk factors for flu complications: Yes: chronic lung disease. No: adult > 65 years, obesity (BMI > 40) Past Medical History Reviewed: Historical Data, Nursing Documentation, Vital Signs Vital Signs: Last Vital Signs Temp 101.4 F H 09/21/17 07:50 Pulse 111 H 09/21/17 07:21 Resp 18 09/21/17 07:21 BP 113/72 09/21/17 07:21 Pulse Ox 96 09/21/17 07:21 - Medical History PMH: Anemia, Anxiety, Arthritis (L ANKLE FX 2 YRS AGO), Asthma, Bipolar Disorder , Bronchitis, COPD, Depression, Diabetes, Emphysema, Gastritis, HTN, Hypercholesterolemia, Hypothyroidism, Malignancy (uterine and breast ca), Pneumonia, Seizures Denies: HIV, Post Traumatic Stress Disorder, Chronic Kidney Disease, Schizophrenia, Sexually Transmitted Disease Surgical History: Cholecystectomy Denies: Endoscopy - [facility] Procedures CHOLECYSTECTOMY (12/21/13) ENDOSCOPIC BRONCHIAL BX (06/26/14) ESOPHAGOGASTRODUODENOSCOPY [EGD] W/CLOSED BIOPSY (12/11/13) INDIVID PSYCHOTHERAP NEC (12/25/14) NON-INVASIVE MECHANICAL VENTILATION (07/24/13) OP RED-INT FIX TIB/FIBUL (07/24/13) OPEN ROBOTIC ASSISTED PROCEDURE (12/21/13) OTHER BRONCHOSCOPY (04/03/13) OTHER GROUP THERAPY (12/25/14) PSYCHIAT DRUG THERAP NEC (01/07/15) Family History: States: No Known Family Hx - Social History Hx Tobacco Use: No Hx Alcohol Use: Yes (socially) Hx Substance Use: No - Immunization History Hx Tetanus Toxoid Vaccination: No Hx Influenza Vaccination: No Hx Pneumococcal Vaccination: No Review Of Systems Except As Marked, All Systems Reviewed And Found Negative. Constitutional: Positive for: Fever, Malaise. Negative for: Chills ENT: Positive for: Throat Pain Respiratory: Positive for: Cough Gastrointestinal: Negative for: Nausea, Vomiting, Diarrhea Physical Exam - Physical Exam Appears: Non-toxic, No Acute Distress Skin: Normal Color, Warm Head: Atraumatic, Normacephalic Eye(s): bilateral: Normal Inspection Ear(s): Bilateral: Normal Nose: Normal Oral Mucosa: Moist Throat: Exudate (exduates to right side), Other (red enlarged tonsils) Neck: Supple Chest: Symmetrical Cardiovascular: Rhythm Regular Respiratory: Normal Breath Sounds, No Rales, No Rhonchi, No Wheezing Gastrointestinal/Abdominal: Normal Exam, Soft, No Tenderness Neurological/Psych: Oriented x3, Normal Speech Medical Decision Making Medical Decision Making: Plan: --Labs --UA --CXR --Motrin PO --Tylenol PO --Tamiflu PO --IV Fluids - Laboratory Results Result Diagrams: 09/21/17 09:09 09/21/17 09:09 - ECG O2 Sat by Pulse Oximetry: 96 - Radiology X-Ray: Interpreted by Me, Viewed By Me X-Ray Interpretation: No Acute Disease Disposition Counseled Patient/Family Regarding: Studies Performed, Diagnosis, Need For Followup, Rx Given - Disposition Referrals: Benny Elizabeth MD [Staff Provider] - Disposition: HOME/ ROUTINE Disposition Time: 14:35 Condition: IMPROVED Prescriptions: Oseltamivir [Tamiflu] 1 cap PO BID #10 cap Penicillin VK [Penicillin VK Tab] 500 mg PO QID #40 tab Forms: [facility] (Slovak), General Discharge Instructions - POA Present On Arrival: None - Clinical Impression Clinical Impression: Influenza-like illness, Pharyngitis - Scribe Statement The provider has reviewed the documentation as recorded by the [place] Hernandez Provider Attestation: All medical record entries made by the [place] were at my direction and personally dictated by me. I have reviewed the chart and agree that the record accurately reflects my personal performance of the history, physical exam, medical decision making, and the department course for this patient. I have also personally directed, reviewed, and agree with the discharge instructions and disposition.
[2017-09-21 10:52] LABS: VENOUS BLOOD GAS BASE EXCESS -0.8 mmol/L (0.0-2.0); VENOUS BLOOD GAS PCO2 37 mmHg (40-60); VENOUS BLOOD GAS PO2 32 mm/Hg (30-55); VENOUS BLOOD PH 7.41 (7.32-7.43)
[2017-09-21 10:56] VITALS: BP 123/81; PULSE 85; RESP 20; TEMP 99.2
--- NOTE | 2017-09-21 13:17 | RAD ---
HISTORY: Cough, fever. COMPARISON: 04/09/2017. TECHNIQUE: Chest PA and lateral FINDINGS: LUNGS: No active pulmonary disease. PLEURA: No significant pleural effusion identified. No pneumothorax apparent. CARDIOVASCULAR: No radiographic findings to suggest acute or significant cardiovascular disease. OSSEOUS STRUCTURES: No significant abnormalities. VISUALIZED UPPER ABDOMEN: Normal. OTHER FINDINGS: None. IMPRESSION: No active disease. No significant interval change compared to the prior examination(s).
[2017-09-21] MEDS ORDERED: Benzocaine/Menthol (Cepacol) Lozenge MT STA (13:46)
[2017-09-21 14:38] VITALS: O2SAT 96
--- NOTE | 2017-09-23 11:56 | CARD ---
APPROVED REPORT EKG Measurement Heart [id number] <Conclusion> Sinus tachycardia Possible Left atrial enlargement T wave abnormality, consider inferior ischemia Abnormal ECG
== END 2017-09-21 15:00 | disposition home or self-care (01) ==
LOC: C.ER 07:07
DX: J11.1 Influenza due to unidentified influenza virus with other respiratory manifestations (principal); I10 Essential (primary) hypertension; E78.00 Pure hypercholesterolemia, unspecified; F17.210 Nicotine dependence, cigarettes, uncomplicated
CPT/HCPCS: 71046; 80048; 81001; 82803; 85025; 87804; 99284; J7040

== ENCOUNTER 2017-11-11 10:56 | Emergency (ER) | payer MEDICARE ==
[2017-11-11 10:56] VITALS: BMI 37.3
[2017-11-11 11:25] VITALS: RESP 20
[2017-11-11 11:58] LABS: SQUAMOUS EPITHIAL 6 /hpf (0-5); URINE BILIRUBIN NEGATIVE (NEGATIVE); URINE BLOOD NEGATIVE (NEGATIVE); URINE CLARITY Hazy (Clear); URINE COLOR Yellow (YELLOW); URINE GLUCOSE (UA) NORMAL (Normal); URINE LEUKOCYTE ESTERASE NEG Leu/uL (Negative); URINE PROTEIN NEGATIVE (NEGATIVE); URINE UROBILINOGEN NORMAL mg/dL (0.2-1.0)
--- NOTE | 2017-11-11 11:59 | C.PDOC ---
History Of Present Illness 57 y/o female with PMHx of NIDDM, fibromyalgia presents for evaluation of gradual worsening of diffuse lower back pain for past 4 weeks. No fall or blunt trauma. Pain has been progressively worsening since onset, and is exacerbated by movement. Patient has also developed malaise, sore throat and dry cough over the past few days. Otherwise denies high fever, chills, drooling, neck pain, CP , SOB, dyspnea, palpitation, wheezing, abd. pain, nausea, vomiting, diarrhea, dysuria, incontinence, denies weakness, to B/L LEs. She admits her urine has been dark recently. Ambulate to Ed for evaluation, not in any apparent distress. Time Seen by Provider: 11/11/17 11:25 Chief Complaint (Nursing): Back Pain History Per: Patient History/Exam Limitations: no limitations Onset/Duration Of Symptoms: Days Current Symptoms Are (Timing): Still Present Past Medical History Reviewed: Historical Data, Nursing Documentation, Vital Signs Vital Signs: Last Vital Signs Temp 100.6 F H 11/11/17 11:23 Pulse 107 H 11/11/17 11:23 Resp 20 11/11/17 11:23 BP 132/86 11/11/17 11:23 Pulse Ox 95 11/11/17 12:03 - Medical History PMH: Anemia, Anxiety, Arthritis (L ANKLE FX 2 YRS AGO), Asthma, Bipolar Disorder , Bronchitis, COPD, Depression, Diabetes, Emphysema, Gastritis, HTN, Hypercholesterolemia, Hypothyroidism, Malignancy (uterine and breast ca), Pneumonia, Seizures Denies: HIV, Post Traumatic Stress Disorder, Chronic Kidney Disease, Schizophrenia, Sexually Transmitted Disease Surgical History: Cholecystectomy Denies: Endoscopy - [facility] Procedures CHOLECYSTECTOMY (12/21/13) ENDOSCOPIC BRONCHIAL BX (06/26/14) ESOPHAGOGASTRODUODENOSCOPY [EGD] W/CLOSED BIOPSY (12/11/13) INDIVID PSYCHOTHERAP NEC (12/25/14) NON-INVASIVE MECHANICAL VENTILATION (07/24/13) OP RED-INT FIX TIB/FIBUL (07/24/13) OPEN ROBOTIC ASSISTED PROCEDURE (12/21/13) OTHER BRONCHOSCOPY (04/03/13) OTHER GROUP THERAPY (12/25/14) PSYCHIAT DRUG THERAP NEC (01/07/15) Family History: States: Unknown Family Hx - Social History Hx Tobacco Use: No Hx Alcohol Use: Yes (socially) Hx Substance Use: No - Immunization History Hx Tetanus Toxoid Vaccination: No Hx Influenza Vaccination: No Hx Pneumococcal Vaccination: No Review Of Systems Constitutional: Negative for: Fever ENT: Positive for: Throat Pain Respiratory: Positive for: Cough. Negative for: Shortness of Breath, Sputum Gastrointestinal: Negative for: Nausea, Vomiting, Diarrhea Genitourinary: Positive for: Other (dark urine). Negative for: Dysuria, Frequency Musculoskeletal: Positive for: Back Pain Physical Exam - Physical Exam Appears: Well, Non-toxic, No Acute Distress Skin: Normal Color, Warm, No Rash Head: Normacephalic Eye(s): bilateral: PERRL Nose: No Flaring, No Discharge Oral Mucosa: Moist, No Drooling Tongue: Normal Appearing Lips: Normal Appearing Throat: Erythema (pharyngeal), No Exudate, No Drooling Neck: Trachea Midline, No Midline Cervical Tenderness, No Paracervical Tenderness, Supple Chest: Symmetrical, No Deformity, No Tenderness Cardiovascular: Rhythm Regular, No Murmur, No JVD Respiratory: No Accessory Muscle Use, No Stridor, No Wheezing, Other (Speaking in full sentences) Gastrointestinal/Abdominal: Soft, No Tenderness, No Distention, No Guarding Back: No CVA Tenderness, No Vertebral Tenderness, Paraspinal Tenderness ( tenderness diffusely across the paralumbar regions) Extremity: Normal ROM, No Deformity, No Swelling Extremity: Bilateral: Atraumatic, Normal Color And Temperature, Normal ROM Neurological/Psych: Oriented x3, Normal Speech, Normal Cranial Nerves, Normal Motor, Normal Sensation, Normal Reflexes ED Course And Treatment O2 Sat by Pulse Oximetry: 95 (RA) Pulse Ox Interpretation: Normal Progress Note: Urine and cultures sent. Patient treated with Valium, Prednisone , and Tylenol. On re-evaluation, pt is afebrile, hemodynamicaly stable. Non- toxic. Ambulatory in Ed with stable gait. PulsEOx 95% RA. ENT: exam c/w acute pharyngitis. Uvula midline, no edema. Neck: Supple, (-) JVD. Lungs: CTA B/L, BS equal B/L. back: (-) CVA tenderness. neurologicalty intact. UA results review and appaers normal. Pt has clinical findings c/w lower back pain, acute pharyngitis. Pt advised. ref. to f/u with PMD in 2-3 days for re-evaluation. return to ED if any worsening or new changes. Disposition Counseled Patient/Family Regarding: Studies Performed, Diagnosis, Need For Followup, Rx Given - Disposition Referrals: Benny Elizabeth MD [Staff Provider] - Disposition: HOME/ ROUTINE Disposition Time: 12:00 Condition: STABLE Additional Instructions: Encourage fluids Take medication as prescribed Follow up with PMD in 2-3 days for further evaluation and treatment return to ED if any worsening or new changes. 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 - Scribe Statement The provider has reviewed the documentation as recorded by the Scribe (Lida Parr) All medical record entries made by the Scribe were at my direction and personally dictated by me. I have reviewed the chart and agree that the record accurately reflects my personal performance of the history, physical exam, medical decision making, and the department course for this patient. I have also personally directed, reviewed, and agree with the discharge instructions and disposition.
[2017-11-11] MEDS ORDERED: Amoxicillin-Clav 875-125 mg Tab PO STA (12:00)
[2017-11-11] MEDS ORDERED: Amoxicillin-Clav 875-125 mg Tab PO ONE (12:48)
[2017-11-11 12:55] VITALS: BP 123/80; PULSE 104; TEMP 100; O2SAT 94
== END 2017-11-11 13:17 | disposition home or self-care (01) ==
LOC: C.ER 10:56
DX: M54.5 Low back pain (principal); J02.9 Acute pharyngitis, unspecified

== ENCOUNTER 2017-12-05 11:05 | Emergency (ER) | payer MEDICARE ==
[2017-12-05 11:06] VITALS: BMI 37.3
[2017-12-05] MEDS ORDERED: Albuterol-Ipratrop 3 mg / 0.5 (3 ml) UD IH STA (12:09)
--- NOTE | 2017-12-05 12:10 | C.PDOC ---
History Of Present Illness 57 y/o female with PMHx significant for COPD, comes in for evaluation of cold symptoms developing for the past 1 week. Patient notes nasal congestion and productive cough with clear sputum. Seen by her PMD Dr. Elizabeth, and was prescribed an unknown antibiotic which she reports completing without improvement. Last night patient developed some chest tightness and was unable to sleep due to worsening SOB and cough. Otherwise patient denies fever, chills , palpitations, wheezing, abd. pain, nausea, vomiting, weakness, or other associated symptoms. Time Seen by Provider: 12/05/17 11:25 Chief Complaint (Nursing): Shortness Of Breath History Per: Patient History/Exam Limitations: no limitations Onset/Duration Of Symptoms: Days Current Symptoms Are (Timing): Still Present Past Medical History Reviewed: Historical Data, Nursing Documentation, Vital Signs Vital Signs: Last Vital Signs Temp 99 F 12/05/17 13:43 Pulse 104 H 12/05/17 13:43 Resp 18 12/05/17 13:43 BP 118/79 12/05/17 13:43 Pulse Ox 96 12/05/17 14:24 - Medical History PMH: Anemia, Anxiety, Arthritis (L ANKLE FX 2 YRS AGO), Asthma, Bipolar Disorder , Bronchitis, COPD, Depression, Diabetes, Emphysema, Gastritis, HTN, Hypercholesterolemia, Hypothyroidism, Malignancy (uterine and breast ca), Pneumonia, Seizures Denies: HIV, Post Traumatic Stress Disorder, Chronic Kidney Disease, Schizophrenia, Sexually Transmitted Disease Surgical History: Cholecystectomy Denies: Endoscopy - [facility] Procedures CHOLECYSTECTOMY (12/21/13) ENDOSCOPIC BRONCHIAL BX (06/26/14) ESOPHAGOGASTRODUODENOSCOPY [EGD] W/CLOSED BIOPSY (12/11/13) INDIVID PSYCHOTHERAP NEC (12/25/14) NON-INVASIVE MECHANICAL VENTILATION (07/24/13) OP RED-INT FIX TIB/FIBUL (07/24/13) OPEN ROBOTIC ASSISTED PROCEDURE (12/21/13) OTHER BRONCHOSCOPY (04/03/13) OTHER GROUP THERAPY (12/25/14) PSYCHIAT DRUG THERAP NEC (01/07/15) Family History: States: Unknown Family Hx - Social History Hx Tobacco Use: No Hx Alcohol Use: Yes (socially) Hx Substance Use: No - Immunization History Hx Tetanus Toxoid Vaccination: No Hx Influenza Vaccination: No Hx Pneumococcal Vaccination: No Review Of Systems Constitutional: Negative for: Fever, Chills, Weakness Cardiovascular: Positive for: Chest Pain (tightness). Negative for: Palpitations Respiratory: Positive for: Cough, Shortness of Breath, Sputum. Negative for: Wheezing Gastrointestinal: Negative for: Nausea, Vomiting, Abdominal Pain Physical Exam - Physical Exam Appears: Well, Non-toxic, No Acute Distress Skin: Normal Color, Warm, Dry, No Rash Eye(s): bilateral: PERRL Nose: No Flaring, Discharge (scant clear B/L) Oral Mucosa: Moist Tongue: Normal Appearing Lips: Normal Appearing Throat: No Drooling Neck: Normal ROM, Trachea Midline, Supple Cardiovascular: Rhythm Regular, No Murmur, No JVD Respiratory: No Decreased Breath Sounds, No Accessory Muscle Use, No Stridor, Wheezing (diffuse expiratory B/L) Gastrointestinal/Abdominal: Soft, No Tenderness Extremity: Normal ROM, No Pedal Edema, No Swelling Neurological/Psych: Oriented x3, Normal Speech ED Course And Treatment - Laboratory Results Result Diagrams: 12/05/17 12:54 12/05/17 12:54 Lab Interpretation: No Acute Changes O2 Sat by Pulse Oximetry: 96 (RA) Pulse Ox Interpretation: Normal - Radiology CXR: Interpreted by Me, Read By Radiologist CXR Interpretation: Yes: No Acute Disease Progress Note: Pt was OBS in ED for 2.5 hours and remained stable. Pt reports, mod improvemnet in sx after ED tx. On re-eval, pt is afebrile, hemodynamicaly stable. Non-toxic. PulsOx 98 %RA ENT: no acute findings. neck: SUpple, (-) JVD , (-) carotid bruits B/L. Lungs: mod improvement B/L exp wheezing, BS equal B/ L. Abd: benign, (-) guarding, (-) rebound. back: (-) CVA tenderness. Neurologicaly intact. Blood work review- no acute changes, no leukocytosis, CXR review (-) acute infiltrate, normal study. Case discussed with ( pt's PMD) recommend Levaquin, steroid, ing and discharge with outpt f/u now. Pt has clinical findings c/w COPD exacerbation. Pt advised. ref. to F/u with PMD in 1-2 days for re-eavl. return if any new changes. Disposition Counseled Patient/Family Regarding: Studies Performed, Diagnosis, Need For Followup, Rx Given - Disposition Referrals: Benny Elizabeth MD [Staff Provider] - Disposition: HOME/ ROUTINE Disposition Time: 13:55 Condition: STABLE Additional Instructions: Encourage fluids Take medication as prescribed Follow up with PMD in 2-3 days for re-evaluation. return to ED if any worsening or new changes. 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 - Scribe Statement The provider has reviewed the documentation as recorded by the Scribe (Lida Parr) All medical record entries made by the Scribe were at my direction and personally dictated by me. I have reviewed the chart and agree that the record accurately reflects my personal performance of the history, physical exam, medical decision making, and the department course for this patient. I have also personally directed, reviewed, and agree with the discharge instructions and disposition.
[2017-12-05] MEDS ORDERED: Albuterol-Ipratrop 3 mg / 0.5 (3 ml) UD ONE (12:20)
--- NOTE | 2017-12-05 12:38 | RAD ---
HISTORY: SOB COMPARISON: Comparison chest 09/29/2017 TECHNIQUE: Chest PA and lateral FINDINGS: LUNGS: No acute consolidation. The interstitial markings slightly increased and coarsened ; rule out sequela of reactive/inflammatory airway disease or viral illness. PLEURA: No significant pleural effusion identified. No pneumothorax apparent. CARDIOVASCULAR: Normal. OSSEOUS STRUCTURES: No significant abnormalities. VISUALIZED UPPER ABDOMEN: Normal. OTHER FINDINGS: None. IMPRESSION: No acute consolidation. The interstitial markings slightly increased and coarsened ; rule out sequela of reactive/inflammatory airway disease or viral illness.
[2017-12-05 12:59] LABS: BASO # 0.1 K/uL (0.0-0.2); EOS # 0.7 K/uL (0.0-0.7); EOS % 5.6 % (0.0-4.0); HEMOGLOBIN 12.2 g/dL (11.0-16.0); LYMPH # 1.7 K/uL (1.0-4.3); LYMPH % 14.7 % (20.0-40.0); MEAN CELL VOLUME 80.9 fL (81.0-99.0); MEAN CORPUSCULAR HEMOGLOBIN 26.9 pg (27.0-31.0); MEAN CORPUSCULAR HGB CONC 33.2 g/dL (33.0-37.0); MEAN PLATELET VOLUME 9.8 fL (7.2-11.7); MONO # 0.8 K/uL (0.0-0.8); MONO % 6.9 % (0.0-10.0); NEUT # 8.4 K/uL (1.8-7.0); NEUT % 71.8 % (50.0-75.0); RBC 4.55 Mil/uL (3.80-5.20); RED CELL DISTRIBUTION WIDTH 15.9 % (11.5-14.5); WHITE BLOOD COUNT 11.7 K/uL (4.8-10.8)
[2017-12-05] MEDS ORDERED: Promethazine/Cod 6.25mg-10mg/5ml Syr UD PO STA (13:09)
[2017-12-05 13:12] LABS: BLOOD UREA NITROGEN 9 mg/dL (7-17); CALCIUM 9.1 mg/dl (8.6-10.4); GFR AFRICAN-AMERICAN > 60; GFR NON-AFRICAN AMERICAN > 60
[2017-12-05 13:44] VITALS: RESP 18
[2017-12-05] MEDS ORDERED: cefTRIAXone IV 1 gm in Dextros 0 ML IVPB ONE (13:47)
[2017-12-05] MEDS ORDERED: Promethazine DM 6.25 mg-15 mg/5 ml Syrup ONE (13:47)
[2017-12-05] MEDS ORDERED: Promethazine/Cod 6.25mg-10mg/5ml Syr UD ONE (13:48)
--- NOTE | 2017-12-05 15:15 | CP.PCM.CON ---
History of Present Illness - History of Present Illness History of Present Illness: Discussed with the emergency room attending able patient emergency room visit today. Patient came to the emergency room with increasing symptoms of cough, shortness of breath. Patient was seen by me a week ago, at the time I gave Levaquin, prednisone. I advised her to go to the emergency room if there is no improvement. Patient in the emergency room had a low-grade temperature, complaining of cough , with mucus production, chills, and and also chest tightness. In the emergency room she was evaluated, given bronchodilators, Solu-Medrol, antibiotic, investigation was done. Clinical examination was documented Patient past medical history including hypertension, COPD, history of breast cancer, status post surgery, bipolar disease. Surgical history cholecystectomy Allergies no known drug allergy Personal history currently smokes almost 5-10 cigarettes per day, before she used to be a smoker heavy. She quit almost a year and half. Denies any alcohol On examination: Click examination is unremarkable, bilateral wheezing noted. Patient's labs reviewed Nonspecific, mild elevation of the WBC noted. Chest x-ray negative for pneumonia Physical examination in the emergency room was nonspecific. Patient is stable for discharge. I spoke to the emergency room attending. I advised her to continue her second course of antibiotic along with the prednisone tapering dose. And I will follow the patient in the office. She does not improve, patient may need intra venous antibiotic and intravenous corticosteroid, will follow-up the patient Past Patient History - Infectious Disease Hx of Infectious Diseases: None - Past Medical History & Family History Past Medical History?: Yes - Past Social History Smoking Status: Heavy Smoker > 10 Cigarettes Daily - CARDIAC Hx Hypercholesterolemia: Yes Hx Hypertension: Yes - PULMONARY Hx Asthma: Yes Hx Bronchitis: Yes Hx Chronic Obstructive Pulmonary Disease (COPD): Yes Hx Emphysema: Yes Hx Pneumonia: Yes - NEUROLOGICAL Hx Seizures: Yes - HEENT Hx HEENT Problems: No - RENAL Hx Chronic Kidney Disease: No - ENDOCRINE/METABOLIC Hx Hypothyroidism: Yes - HEMATOLOGICAL/ONCOLOGICAL Hx Anemia: Yes Hx Human Immunodeficiency Virus (HIV): No - INTEGUMENTARY Hx Dermatological Problems: Yes Other/Comment: Skin Ca - MUSCULOSKELETAL/RHEUMATOLOGICAL Hx Arthritis: Yes (L ANKLE FX 2 YRS AGO) - GASTROINTESTINAL Hx Gastritis: Yes - GENITOURINARY/GYNECOLOGICAL Hx Sexually Transmitted Disorders: No - PSYCHIATRIC Hx Anxiety: Yes Hx Bipolar Disorder: Yes Hx Depression: Yes Hx Post Traumatic Stress Disorder: No Hx Schizophrenia: No Hx Substance Use: No - SURGICAL HISTORY Hx Cholecystectomy: Yes - ANESTHESIA Hx Anesthesia: Yes Hx Anesthesia Reactions: No Hx Malignant Hyperthermia: No Meds Home Medications: Home Medication List Medication Instructions Recorded Confirmed Type Albuterol HFA [Ventolin HFA 90 1 puff IH Q6 #1 inhaler 12/05/17 Rx mcg/actuation (8 g)] Benzonatate [Tessalon Perle] 100 mg PO TID #14 capsule 12/05/17 Rx Prednisone [Deltasone] 60 mg PO DAILY #9 tablet 12/05/17 Rx levoFLOXacin [Levaquin] 500 mg PO DAILY #7 tab 12/05/17 Rx Allergies/Adverse Reactions: Allergies Allergy/AdvReac Type Severity Reaction Status Date / Time No Known Allergies Allergy Verified 09/21/17 07:25 Results - Vital Signs Recent Vital Signs: Last Vital Signs Temp 99 F 12/05/17 13:43 Pulse 104 H 12/05/17 13:43 Resp 18 12/05/17 13:43 BP 118/79 12/05/17 13:43 Pulse Ox 96 12/05/17 15:12 - Labs Result Diagrams: 12/05/17 12:54 12/05/17 12:54 Labs: Laboratory Results - last 24 hr 12/05/17 12/05/17 12:54 12:54 WBC 11.7 H RBC 4.55 Hgb 12.2 Hct 36.8 MCV 80.9 L MCH 26.9 L MCHC 33.2 RDW 15.9 H Plt Count 210 MPV 9.8 Neut % (Auto) 71.8 Lymph % (Auto) 14.7 L [place] % (Auto) 6.9 Eos % (Auto) 5.6 H Baso % (Auto) 1.0 Neut # (Auto) 8.4 H Lymph # (Auto) 1.7 [place] # (Auto) 0.8 Eos # (Auto) 0.7 Baso # (Auto) 0.1 Sodium 140 Potassium 4.1 Chloride 103 Carbon Dioxide 27 Anion Gap 14 BUN 9 Creatinine 0.8 Est GFR ( Amer) > 60 Est GFR (Non-Af Amer) > 60 Random Glucose 113 H Calcium 9.1
[2017-12-05 15:31] VITALS: BP 122/74; PULSE 88; TEMP 98.9; O2SAT 97
== END 2017-12-05 15:38 | disposition home or self-care (01) ==
LOC: C.ER 11:05
DX: J44.9 Chronic obstructive pulmonary disease, unspecified (principal); F17.210 Nicotine dependence, cigarettes, uncomplicated
CPT/HCPCS: 71046; 80048; 85025; 94640; 96365; 96375; 99284; J0696; J2930

== ENCOUNTER 2017-12-30 13:37 | Inpatient (IN) | payer MEDICARE ==
[2017-12-30 13:38] VITALS: BMI 37.3
[2017-12-30] MEDS ORDERED: MethylPREDNISolone 40 mg Vial IVP STA (14:03)
[2017-12-30] MEDS ORDERED: Albuterol-Ipratrop 3 mg / 0.5 (3 ml) UD INH STA ×2 (14:03)
--- NOTE | 2017-12-30 14:09 | C.PDOC ---
History Of Present Illness 57 y/o female presents to ED sent by PMD for evaluation of non improved sob for 4 week. Patient is on outpatient antibiotics with no improvement and currently denies chest pain. nausea, vomiting, leg swelling, fever, chills or any other complaints at this time. Time Seen by Provider: 12/30/17 13:58 Chief Complaint (Nursing): Shortness Of Breath History Per: Patient History/Exam Limitations: no limitations Onset/Duration Of Symptoms: Days Current Symptoms Are (Timing): Still Present Initiating Event: Upper Respiratory Illness Past Medical History Reviewed: Historical Data, Nursing Documentation, Vital Signs Vital Signs: Last Vital Signs Temp 98.2 F 12/30/17 17:08 Pulse 88 12/30/17 17:08 Resp 20 12/30/17 17:08 BP 127/80 12/30/17 17:08 Pulse Ox 98 12/30/17 17:47 - Medical History PMH: Anemia, Anxiety, Arthritis (L ANKLE FX 2 YRS AGO), Asthma, Bipolar Disorder , Bronchitis, COPD, Depression, Diabetes, Emphysema, Gastritis, HTN, Hypercholesterolemia, Hypothyroidism, Malignancy (uterine and breast ca), Pneumonia, Seizures Surgical History: Cholecystectomy - [facility] Procedures CHOLECYSTECTOMY (12/21/13) ENDOSCOPIC BRONCHIAL BX (06/26/14) ESOPHAGOGASTRODUODENOSCOPY [EGD] W/CLOSED BIOPSY (12/11/13) INDIVID PSYCHOTHERAP NEC (12/25/14) NON-INVASIVE MECHANICAL VENTILATION (07/24/13) OP RED-INT FIX TIB/FIBUL (07/24/13) OPEN ROBOTIC ASSISTED PROCEDURE (12/21/13) OTHER BRONCHOSCOPY (04/03/13) OTHER GROUP THERAPY (12/25/14) PSYCHIAT DRUG THERAP NEC (01/07/15) Family History: States: No Known Family Hx - Social History Hx Tobacco Use: No Hx Alcohol Use: Yes (socially) Hx Substance Use: No - Immunization History Hx Tetanus Toxoid Vaccination: No Hx Influenza Vaccination: No Hx Pneumococcal Vaccination: No Review Of Systems Constitutional: Negative for: Fever, Chills Cardiovascular: Negative for: Chest Pain Respiratory: Positive for: Shortness of Breath Gastrointestinal: Negative for: Nausea, Vomiting Musculoskeletal: Negative for: Back Pain Skin: Negative for: Rash Physical Exam - Physical Exam Appears: Non-toxic, No Acute Distress Skin: Warm, Dry, No Rash Head: Atraumatic, Normacephalic Eye(s): bilateral: Normal Inspection Oral Mucosa: Moist Neck: Supple Cardiovascular: Rhythm Regular Respiratory: No Rales, No Rhonchi, Wheezing (bilateral) Gastrointestinal/Abdominal: Soft, No Tenderness, No Guarding, No Rebound Extremity: No Pedal Edema, Capillary Refill (<2 seconds) Neurological/Psych: Oriented x3, Normal Speech, Normal Cognition ED Course And Treatment - Laboratory Results Result Diagrams: 12/30/17 14:49 12/30/17 14:49 ECG: Interpreted By Me, Viewed By Me ECG Rhythm: Sinus Rhythm Rate From EC O2 Sat by Pulse Oximetry: 98 (RA) Pulse Ox Interpretation: Normal Medical Decision Making Medical Decision Making: copd fialure of outpt tx, also hx of mrsa. case discussed with dr elizabeth, accepts for admission, plans on bronch. Disposition - Disposition Disposition: HOSPITALIZED Disposition Time: 05:00 Condition: STABLE - Clinical Impression Clinical Impression: Chronic obstructive lung disease, COPD (chronic obstructive pulmonary disease) - Scribe Statement The provider has reviewed the documentation as recorded by the Scribe Verónica Mesa All medical record entries made by the Scribe were at my direction and personally dictated by me. I have reviewed the chart and agree that the record accurately reflects my personal performance of the history, physical exam, medical decision making, and the department course for this patient. I have also personally directed, reviewed, and agree with the discharge instructions and disposition. Decision To Admit - Pt Status Changed To: Hospital Disposition Of: Inpatient - Admit Certification Admit to Inpatient:: After my assessment, the patient will require hospitalization for at least two midnights. This is because of the severity of symptoms shown, intensity of services needed, and/or the medical risk in this patient being treated as an outpatient. - InPatient: Physician Admission Certification: I certify that this patient requires 2 or more midnights of care for the following reason:: needs iv antibiotics and bronch. - . Bed Request Type: Telemetry Admitting Physician: Benny Elizabeth Patient Diagnosis: Chronic obstructive lung disease, COPD (chronic obstructive pulmonary disease)
[2017-12-30] MEDS ORDERED: Piperacillin/Tazobact 3.375 gm 100 ML IVPB STA (14:12)
--- NOTE | 2017-12-30 14:18 | RAD ---
Date of service: 12/30/2017 PROCEDURE: CHEST RADIOGRAPH, 1 VIEW HISTORY: chest pain COMPARISON: 12/05/2017 chest x-ray and CT chest 11/18/2016 report FINDINGS: LUNGS: Clear. PLEURA: No pneumothorax or pleural fluid seen. CARDIOVASCULAR: Normal. OSSEOUS STRUCTURES: No significant abnormalities. VISUALIZED UPPER ABDOMEN: Normal. OTHER FINDINGS: None. IMPRESSION: No active disease.
[2017-12-30] MEDS ORDERED: Albuterol-Ipratrop 3 mg / 0.5 (3 ml) UD ONE (14:48)
[2017-12-30 14:55] LABS: BASO # 0.1 K/uL (0.0-0.2); EOS # 0.5 K/uL (0.0-0.7); EOS % 7.1 % (0.0-4.0); HEMOGLOBIN 12.1 g/dL (11.0-16.0); LYMPH # 1.9 K/uL (1.0-4.3); LYMPH % 25.9 % (20.0-40.0); MEAN CELL VOLUME 80.8 fL (81.0-99.0); MEAN CORPUSCULAR HEMOGLOBIN 26.9 pg (27.0-31.0); MEAN CORPUSCULAR HGB CONC 33.4 g/dL (33.0-37.0); MEAN PLATELET VOLUME 9.6 fL (7.2-11.7); MONO # 0.4 K/uL (0.0-0.8); MONO % 5.9 % (0.0-10.0); NEUT # 4.4 K/uL (1.8-7.0); NEUT % 60.1 % (50.0-75.0); RBC 4.51 Mil/uL (3.80-5.20); RED CELL DISTRIBUTION WIDTH 14.9 % (11.5-14.5); WHITE BLOOD COUNT 7.4 K/uL (4.8-10.8)
[2017-12-30 15:05] LABS: INR 1.2; PROTHROMBIN TIME 12.6 SECONDS (9.7-12.2)
[2017-12-30 15:07] LABS: ALB/GLOB RATIO 1.2 (1.0-2.1); ALBUMIN 4.4 g/dL (3.5-5.0); ALT/SGPT 45 U/L (9-52); AST/SGOT 33 U/L (14-36); BLOOD UREA NITROGEN 10 mg/dL (7-17); CALCIUM 9.6 mg/dl (8.6-10.4); GFR NON-AFRICAN AMERICAN > 60
[2017-12-30] MEDS ORDERED: Vancomycin 1 GM in Sodium Chloride 0.9% 200 ML IVPB STA (15:09)
[2017-12-30] MEDS ORDERED: Piperacillin/Tazobact 3.375 gm 100 ML IVPB ONE (15:15)
[2017-12-30 15:18] LABS: B-TYPE NATRIURETIC PEPTIDE 120 pg/mL (0-900)
[2017-12-30 16:13] LABS: SQUAMOUS EPITHIAL 2 /hpf (0-5); URINE BACTERIA RARE (<OCC); URINE BILIRUBIN NEGATIVE (NEGATIVE); URINE BLOOD NEGATIVE (NEGATIVE); URINE CLARITY Clear (Clear); URINE COLOR Yellow (YELLOW); URINE GLUCOSE (UA) NORMAL (Normal); URINE LEUKOCYTE ESTERASE NEG Leu/uL (Negative); URINE PROTEIN NEGATIVE (NEGATIVE); URINE UROBILINOGEN NORMAL mg/dL (0.2-1.0)
[2017-12-30] MEDS: Vancomycin 1 gm/NS 200 ml 1 GM/200 ML BAG IVPB SCH (19:59)
[2017-12-30] MEDS: Albuterol-Ipratrop 3 mg / 0.5 (3 ml) UD INH SCH (20:00)
[2017-12-30] MEDS: Fluticasone-Salmeterol 500-50mcg Diskus INH SCH (20:00)
[2017-12-31] MEDS ORDERED: Simethicone 80 mg Chewtab PO STA (00:22)
[2017-12-31] MEDS: Albuterol-Ipratrop 3 mg / 0.5 (3 ml) UD INH SCH ×4 (01:35→20:01)
[2017-12-31] MEDS: Oxycodone/Acetaminophen 5/325 mg Tab PO PRN ×2 (05:01→16:50)
[2017-12-31] MEDS: Levothyroxine 125 MCG TAB PO SCH (06:05)
[2017-12-31] MEDS: Fluticasone-Salmeterol 500-50mcg Diskus INH SCH ×2 (09:37→20:01)
[2017-12-31] MEDS ORDERED: Pneumococcal 23-Valent Vaccine IM ONE (11:13)
--- NOTE | 2017-12-31 11:58 | CARD ---
APPROVED REPORT Date of service: 12/30/2017 EKG Measurement Heart [id number] <Conclusion> Normal sinus rhythm Normal ECG
[2017-12-31] MEDS: Pantoprazole 40 mg EC Tab PO SCH (13:06)
[2017-12-31] MEDS: Tiotropium 18 mcg Cap For Inhalation INH SCH (13:37)
[2017-12-31] MEDS: POLYETHYLENE GLYCOL 3350 17 GM/Dose PACKET PO SCH (17:48)
[2017-12-31] MEDS: Vancomycin 1 gm/NS 200 ml 1 GM/200 ML BAG IVPB SCH (19:52)
[2018-01-01] MEDS: Albuterol-Ipratrop 3 mg / 0.5 (3 ml) UD INH SCH ×4 (01:25→19:45)
[2018-01-01] MEDS: Levothyroxine 125 MCG TAB PO SCH (06:08)
[2018-01-01] MEDS: Tiotropium 18 mcg Cap For Inhalation INH SCH (08:09)
[2018-01-01] MEDS: Fluticasone-Salmeterol 500-50mcg Diskus INH SCH ×2 (08:09→19:45)
[2018-01-01] MEDS ORDERED: Albuterol HFA 90 mcg/actuation (8 g) ONE (08:57)
--- NOTE | 2018-01-01 09:03 | CP.PCM.HP ---
History of Present Illness - History of Present Illness History of Present Illness: cc; cob hpi: 54yrs old femlae with h/o HTN, cancer breast s/p treatment, DM, bipolar, anxiety , high cholesterol and copd with frequent exacerbations and MRSA bronchitis and pneumonia came to ed with increasing sob and increasing cough and sob. pt was given out patient po antibiotic and she got 2 types of po antibiotics with no improvements. still she has severe sob and cough and thick yellow mucous production and also having frequent chills she has night sweats and chills and fever and no diarrhea now. pt is not feeling very well and increasing weakness and increasing chest tightness noted. pt is using the nebs and bipap but no improvement. she has also sleep apnea using the cpap pmh: HTN, COPD, DM, RYANNE, BIPOLAR AND CA BREAST AND ANXITEY AND LBA AND CHRONIC PAIN AND CERVICAL SPONDYLOSIS SURGERY: LUMPECTOMY CHOLECYSTECTOMY ALLERY: KATJA PERSONAL: PT IS A HEAVE SMOKER BUT QUIT NOW 2 MONTHS NOT A ETOH NO DRUGS FAMILY: MOTHER HAS HTN AND FATHER UNKNOWN SISTER HTN COPD ROS: pt is having increasing cough and sob and wheezing pt is also c/o nausea and no vomiting afebrile but c/o wheezing and fever and chills chest good air entry but wheezing noted cvs regular hs abd soft no edema ext no edema cxr: bilateral copd pattern no active infiltrate noted a/p: 54yrs old femlae with h/o HTN, cancer breast s/p treatment, DM, bipolar, anxiety , high cholesterol and copd with frequent exacerbations and MRSA bronchitis and pneumonia came to er with acute worsening copd likely mrsa bronchitis cant be ruled out will get the sputum if not needed bronchoscope add vanco copd treatment will f/u Present on Admission - Present on Admission Any Indicators Present on Admission: No History of DVT/PE: No History of Uncontrolled Diabetes: No Urinary Catheter: No Decubitus Ulcer Present: No Past Patient History - Infectious Disease Hx of Infectious Diseases: None - Past Medical History & Family History Past Medical History?: Yes - Past Social History Smoking Status: Former Smoker - CARDIAC Hx Hypercholesterolemia: Yes Hx Hypertension: Yes - PULMONARY Hx Asthma: Yes Hx Bronchitis: Yes Hx Chronic Obstructive Pulmonary Disease (COPD): Yes Hx Emphysema: Yes Hx Pneumonia: Yes - NEUROLOGICAL Hx Seizures: Yes - HEENT Hx HEENT Problems: No - RENAL Hx Chronic Kidney Disease: No - ENDOCRINE/METABOLIC Hx Hypothyroidism: Yes - HEMATOLOGICAL/ONCOLOGICAL Hx Anemia: Yes - INTEGUMENTARY Hx Dermatological Problems: Yes Other/Comment: Skin Ca - MUSCULOSKELETAL/RHEUMATOLOGICAL Hx Arthritis: Yes (L ANKLE FX 2 YRS AGO) - GASTROINTESTINAL Hx Gastritis: Yes - GENITOURINARY/GYNECOLOGICAL Hx Sexually Transmitted Disorders: No - PSYCHIATRIC Hx Anxiety: Yes Hx Bipolar Disorder: Yes Hx Depression: Yes Hx Substance Use: No - SURGICAL HISTORY Hx Cholecystectomy: Yes - ANESTHESIA Hx Anesthesia: Yes Hx Anesthesia Reactions: No Hx Malignant Hyperthermia: No Meds Home Medications: Home Medication List Medication Instructions Recorded Confirmed Type Albuterol HFA [Ventolin HFA 90 1 puff IH Q6 #2 inhaler 01/05/18 Rx mcg/actuation (8 g)] Albuterol/Ipratropium [Duoneb 3 1 ea IH Q4H PRN 30 Days neb 01/05/18 Rx mg/0.5 mg (3 ml) UD] Fluticasone/Salmeterol 500/50 1 puff INH RQ12 #1 puff 01/05/18 Rx [Advair Diskus 500/50] QUEtiapine [Seroquel] 200 mg PO BID #0 tab 01/05/18 12/30/17 Rx Tiotropium [Spiriva] 18 mcg INH RQ24 #1 cap 01/05/18 Rx Allergies/Adverse Reactions: Allergies Allergy/AdvReac Type Severity Reaction Status Date / Time No Known Allergies Allergy Verified 09/21/17 07:25 Results - Vital Signs Recent Vital Signs: Last Vital Signs Temp 98.1 F 01/01/18 07:00 Pulse 96 H 01/01/18 08:00 Resp 20 01/01/18 07:00 BP 119/77 01/01/18 07:00 Pulse Ox 97 01/01/18 07:00 - Labs Result Diagrams: 01/01/18 14:09 01/01/18 14:09 Labs: Laboratory Results - last 24 hr 12/31/17 12/31/17 12/31/17 12:05 16:08 21:26 POC Glucose (mg/dL) 90 121 H 139 H 01/01/18 06:51 POC Glucose (mg/dL) 131 H
--- NOTE | 2018-01-01 09:06 | CP.PCM.PN ---
Subjective - Date & Time of Evaluation Date of Evaluation: 12/31/17 Time of Evaluation: 22:00 - Subjective Subjective: pt is still having cough non productive sob noted chocking sensation noted vitals stable chest wheezing noted no fever will plan bronch tomorrow for specimen of sputum and culture on vanco Objective - Vital Signs/Intake and Output Vital Signs (last 24 hours): Temp Pulse Resp BP Pulse Ox 98.1 F 96 H 20 119/77 97 01/01/18 07:00 01/01/18 08:00 01/01/18 07:00 01/01/18 07:00 01/01/18 07:00 - Medications Medications: Current Medications Albuterol/Ipratropium (Duoneb 3 Mg/0.5 Mg (3 Ml) Ud) 3 ml INH RQ6 [facility] Last Admin: 01/01/18 08:09 Dose: 3 ml Diazepam (Valium) 2 mg PO BID PRN PRN Reason: Anxiety Last Admin: 12/31/17 21:56 Dose: 2 mg Vancomycin/Sodium Chloride (Vancomycin 1 Gm/Ns 200 Ml) 1 gm in 200 mls @ 133 mls/hr IVPB Q24H [facility] PRN Reason: Protocol Stop: 01/04/18 19:01 Last Admin: 12/31/17 19:52 Dose: 133 mls/hr Levothyroxine Sodium (Synthroid) 125 mcg PO DAILY@0630 [facility] Last Admin: 01/01/18 06:08 Dose: Not Given Metformin HCl (Glucophage) 850 mg PO BID [facility] Last Admin: 12/31/17 17:40 Dose: 850 mg Oxycodone/Acetaminophen (Percocet 5/325 Mg Tab) 1 tab PO BID PRN PRN Reason: Pain, moderate (4-7) Last Admin: 12/31/17 16:50 Dose: 1 tab Pantoprazole Sodium (Protonix Ec Tab) 40 mg PO DAILY [facility] Last Admin: 12/31/17 13:06 Dose: 40 mg Pneumococcal Polyvalent Vaccine (Pneumovax 23 Vaccine) 0.5 ml IM .ONCE ONE Stop: 01/01/18 12:01 Polyethylene Glycol (Miralax) 17 gm PO DAILY [facility] Last Admin: 12/31/17 17:48 Dose: 17 gm Fluticasone/Salmeterol (Advair Diskus 500/50) 1 puff INH RQ12 [facility] Last Admin: 01/01/18 08:09 Dose: 1 puff Tiotropium [place] (Spiriva) 18 mcg INH RQ24 [facility] Last Admin: 01/01/18 08:09 Dose: 18 mcg Topiramate (Topamax) 50 mg PO DAILY [facility] Last Admin: 12/31/17 09:23 Dose: 50 mg - Labs Labs: 12/30/17 14:49 12/30/17 14:49 PT 12.6 SECONDS (9.7-12.2) H 12/30/17 14:49 INR 1.2 12/30/17 14:49 APTT 34 SECONDS (21-34) 12/30/17 14:49
--- NOTE | 2018-01-01 09:07 | CP.PCM.PN ---
Subjective - Date & Time of Evaluation Date of Evaluation: 01/01/18 Time of Evaluation: 09:07 - Subjective Subjective: Clinical examination is unremarkable. We will continue the IV antibiotic. Still having cough. Possible bronchoscopy tomorrow Objective - Vital Signs/Intake and Output Vital Signs (last 24 hours): Temp Pulse Resp BP Pulse Ox 98.1 F 96 H 20 119/77 97 01/01/18 07:00 01/01/18 08:00 01/01/18 07:00 01/01/18 07:00 01/01/18 07:00 - Medications Medications: Current Medications Albuterol/Ipratropium (Duoneb 3 Mg/0.5 Mg (3 Ml) Ud) 3 ml INH RQ6 [facility] Last Admin: 01/01/18 08:09 Dose: 3 ml Diazepam (Valium) 2 mg PO BID PRN PRN Reason: Anxiety Last Admin: 12/31/17 21:56 Dose: 2 mg Vancomycin/Sodium Chloride (Vancomycin 1 Gm/Ns 200 Ml) 1 gm in 200 mls @ 133 mls/hr IVPB Q24H [facility] PRN Reason: Protocol Stop: 01/04/18 19:01 Last Admin: 12/31/17 19:52 Dose: 133 mls/hr Levothyroxine Sodium (Synthroid) 125 mcg PO DAILY@0630 [facility] Last Admin: 01/01/18 06:08 Dose: Not Given Metformin HCl (Glucophage) 850 mg PO BID [facility] Last Admin: 12/31/17 17:40 Dose: 850 mg Oxycodone/Acetaminophen (Percocet 5/325 Mg Tab) 1 tab PO BID PRN PRN Reason: Pain, moderate (4-7) Last Admin: 12/31/17 16:50 Dose: 1 tab Pantoprazole Sodium (Protonix Ec Tab) 40 mg PO DAILY [facility] Last Admin: 12/31/17 13:06 Dose: 40 mg Pneumococcal Polyvalent Vaccine (Pneumovax 23 Vaccine) 0.5 ml IM .ONCE ONE Stop: 01/01/18 12:01 Polyethylene Glycol (Miralax) 17 gm PO DAILY [facility] Last Admin: 12/31/17 17:48 Dose: 17 gm Fluticasone/Salmeterol (Advair Diskus 500/50) 1 puff INH RQ12 [facility] Last Admin: 01/01/18 08:09 Dose: 1 puff Tiotropium [place] (Spiriva) 18 mcg INH RQ24 [facility] Last Admin: 01/01/18 08:09 Dose: 18 mcg Topiramate (Topamax) 50 mg PO DAILY [facility] Last Admin: 12/31/17 09:23 Dose: 50 mg - Labs Labs: 12/30/17 14:49 12/30/17 14:49 PT 12.6 SECONDS (9.7-12.2) H 12/30/17 14:49 INR 1.2 12/30/17 14:49 APTT 34 SECONDS (21-34) 12/30/17 14:49
[2018-01-01] MEDS ORDERED: Midazolam 2 MG/2 ML VIAL ONE ×2 (09:14→09:23)
[2018-01-01] MEDS ORDERED: Lidocaine 2% MPF (5 ml) Inj ONE ×2 (09:20→09:27)
[2018-01-01] MEDS ORDERED: Propofol 10 mg/ml Inj (20 ML) ONE (09:21)
[2018-01-01] MEDS ORDERED: ePHEDrine 50 mg/ml Inj ONE (09:27)
--- NOTE | 2018-01-01 09:40 | PCM.SURG1 ---
Surgeon's Initial Post Op Note - Surgeon's Notes Surgeon: Clara Instructor Technical Training: none Pre-Operative Diagnosis: Brochiactasis, MRSA Operative Findings: thick yellow mucous in the left bronchial tree. erythematous changes noted in the left bronchial tree. no intra lumina mass Post-Operative Diagnosis: Bronchitis chronic Operation Performed: Bronchoscopy and BAL Specimen/Specimens Removed: BAL and washings Estimated Blood Loss: EBL {In ML}: 0 Date of Surgery/Procedure: 01/01/18 Time of Surgery/Procedure: 09:40
[2018-01-01] MEDS ORDERED: Albuterol-Ipratrop 3 mg / 0.5 (3 ml) UD INH STA (09:42)
[2018-01-01] MEDS: POLYETHYLENE GLYCOL 3350 17 GM/Dose PACKET PO SCH ×2 (10:31→13:00)
[2018-01-01] MEDS: Pantoprazole 40 mg EC Tab PO SCH ×2 (10:31→12:58)
[2018-01-01] MEDS: MethylPREDNISolone 40 mg Vial IVP SCH ×2 (10:56→22:10)
[2018-01-01] MEDS: Lactated Ringer's 1,000 ML IV SCH ×2 (10:58→19:45)
[2018-01-01] MEDS ORDERED: Pneumococcal 23-Valent Vaccine IM ONE (12:00)
[2018-01-01] MEDS: Oxycodone/Acetaminophen 5/325 mg Tab PO PRN ×2 (12:59→22:46)
[2018-01-01 14:26] LABS: BASO % 0.4 % (0.0-2.0); EOS # 0.1 K/uL (0.0-0.7); HEMOGLOBIN 11.2 g/dL (11.0-16.0); LYMPH # 1.2 K/uL (1.0-4.3); LYMPH % 12.7 % (20.0-40.0); MEAN CELL VOLUME 81.6 fL (81.0-99.0); MEAN CORPUSCULAR HEMOGLOBIN 26.4 pg (27.0-31.0); MEAN CORPUSCULAR HGB CONC 32.3 g/dL (33.0-37.0); MEAN PLATELET VOLUME 9.7 fL (7.2-11.7); MONO # 0.1 K/uL (0.0-0.8); MONO % 1.3 % (0.0-10.0); NEUT # 7.9 K/uL (1.8-7.0); NEUT % 84.6 % (50.0-75.0); RBC 4.26 Mil/uL (3.80-5.20); RED CELL DISTRIBUTION WIDTH 15.2 % (11.5-14.5); WHITE BLOOD COUNT 9.3 K/uL (4.8-10.8)
[2018-01-01 14:40] LABS: ALB/GLOB RATIO 1.1 (1.0-2.1); ALBUMIN 4.1 g/dL (3.5-5.0); ALT/SGPT 40 U/L (9-52); AST/SGOT 32 U/L (14-36); BLOOD UREA NITROGEN 14 mg/dL (7-17); CALCIUM 9.1 mg/dl (8.6-10.4); GFR NON-AFRICAN AMERICAN > 60
--- NOTE | 2018-01-01 15:32 | RAD ---
Date of service: 01/01/2018 HISTORY: post bronchoscopy COMPARISON: Comparison is made with 12/30/2017 FINDINGS: LUNGS: No evidence of new infiltrate or consolidation in the lungs PLEURA: No significant pleural effusion identified, no pneumothorax apparent. CARDIOVASCULAR: Normal. OSSEOUS STRUCTURES: No significant abnormalities. VISUALIZED UPPER ABDOMEN: Normal. OTHER FINDINGS: None. IMPRESSION: No active disease.
[2018-01-01] MEDS: Vancomycin 1 gm/NS 200 ml 1 GM/200 ML BAG IVPB SCH (19:53)
[2018-01-01] MEDS: (Novolin R) Insulin Human Regular 100 units/ml vial SC SCH (21:20)
[2018-01-02] MEDS: Albuterol-Ipratrop 3 mg / 0.5 (3 ml) UD INH SCH ×4 (01:06→19:23)
[2018-01-02] MEDS: Oxycodone/Acetaminophen 5/325 mg Tab PO PRN ×2 (03:56→22:19)
[2018-01-02] MEDS: Lactated Ringer's 1,000 ML IV SCH (05:45)
[2018-01-02] MEDS: Levothyroxine 125 MCG TAB PO SCH (06:18)
[2018-01-02] MEDS: Fluticasone-Salmeterol 500-50mcg Diskus INH SCH ×2 (07:10→19:23)
[2018-01-02] MEDS: Tiotropium 18 mcg Cap For Inhalation INH SCH (07:10)
[2018-01-02] MEDS: (Novolin R) Insulin Human Regular 100 units/ml vial SC SCH ×4 (07:45→21:04)
[2018-01-02] MEDS: POLYETHYLENE GLYCOL 3350 17 GM/Dose PACKET PO SCH (09:31)
[2018-01-02] MEDS: Pantoprazole 40 mg EC Tab PO SCH (09:31)
--- NOTE | 2018-01-02 19:59 | CP.PCM.PN ---
Subjective - Date & Time of Evaluation Date of Evaluation: 01/02/18 Time of Evaluation: 19:58 - Subjective Subjective: pt this am had some nausea no vomiting having constipation no chest pain on duoneb will wait for sputum culture possible MRSA bronchitis on vancomycine will need PICC line Objective - Vital Signs/Intake and Output Vital Signs (last 24 hours): Temp Pulse Resp BP Pulse Ox 97.9 F 89 20 115/72 95 01/02/18 15:53 01/02/18 15:53 01/02/18 15:53 01/02/18 15:53 01/02/18 15:53 Intake and Output: 01/02/18 01/03/18 18:59 06:59 Intake Total 720 Balance 720 - Medications Medications: Current Medications Albuterol/Ipratropium (Duoneb 3 Mg/0.5 Mg (3 Ml) Ud) 3 ml INH RQ6 [facility] Last Admin: 01/02/18 19:23 Dose: 3 ml Diazepam (Valium) 2 mg PO BID PRN PRN Reason: Anxiety Last Admin: 01/02/18 09:42 Dose: 2 mg Vancomycin/Sodium Chloride (Vancomycin 1 Gm/Ns 200 Ml) 1 gm in 200 mls @ 133 mls/hr IVPB Q24H [facility] PRN Reason: Protocol Stop: 01/04/18 19:01 Last Admin: 01/01/18 19:53 Dose: 133 mls/hr Insulin Human Regular (Novolin R) 0 unit SC ACHS [facility] PRN Reason: Protocol Last Admin: 01/02/18 17:00 Dose: Not Given Levothyroxine Sodium (Synthroid) 125 mcg PO DAILY@0630 [facility] Last Admin: 01/02/18 06:18 Dose: 125 mcg Metformin HCl (Glucophage) 850 mg PO BID [facility] Last Admin: 01/02/18 17:42 Dose: 850 mg Oxycodone/Acetaminophen (Percocet 5/325 Mg Tab) 1 tab PO BID PRN PRN Reason: Pain, moderate (4-7) Last Admin: 01/02/18 03:56 Dose: 1 tab Pantoprazole Sodium (Protonix Ec Tab) 40 mg PO DAILY [facility] Last Admin: 01/02/18 09:31 Dose: 40 mg Pneumococcal Polyvalent Vaccine (Pneumovax 23 Vaccine) 0.5 ml IM .ONCE ONE Stop: 01/06/18 10:01 Polyethylene Glycol (Miralax) 17 gm PO DAILY [facility] Last Admin: 01/02/18 09:31 Dose: 17 gm Quetiapine Fumarate (Seroquel) 200 mg PO BID [facility] Last Admin: 01/02/18 17:43 Dose: 200 mg Fluticasone/Salmeterol (Advair Diskus 500/50) 1 puff INH RQ12 [facility] Last Admin: 01/02/18 19:23 Dose: 1 puff Tiotropium [place] (Spiriva) 18 mcg INH RQ24 [facility] Last Admin: 01/02/18 07:10 Dose: 18 mcg Topiramate (Topamax) 50 mg PO DAILY [facility] Last Admin: 01/02/18 09:31 Dose: 50 mg - Labs Labs: 01/01/18 14:09 01/01/18 14:09 PT 12.6 SECONDS (9.7-12.2) H 12/30/17 14:49 INR 1.2 12/30/17 14:49 APTT 34 SECONDS (21-34) 12/30/17 14:49
[2018-01-02] MEDS: Vancomycin 1 gm/NS 200 ml 1 GM/200 ML BAG IVPB SCH (20:47)
[2018-01-03] MEDS: Albuterol-Ipratrop 3 mg / 0.5 (3 ml) UD INH SCH ×4 (01:00→19:26)
[2018-01-03] MEDS: Levothyroxine 125 MCG TAB PO SCH (06:06)
[2018-01-03] MEDS: Fluticasone-Salmeterol 500-50mcg Diskus INH SCH ×2 (07:05→19:26)
[2018-01-03] MEDS: Tiotropium 18 mcg Cap For Inhalation INH SCH (07:05)
[2018-01-03] MEDS: (Novolin R) Insulin Human Regular 100 units/ml vial SC SCH ×4 (07:30→21:53)
[2018-01-03] MEDS: Pantoprazole 40 mg EC Tab PO SCH (10:07)
[2018-01-03] MEDS: POLYETHYLENE GLYCOL 3350 17 GM/Dose PACKET PO SCH (10:12)
[2018-01-03] MEDS: Oxycodone/Acetaminophen 5/325 mg Tab PO PRN ×2 (13:29→21:54)
--- NOTE | 2018-01-03 13:32 | RAD ---
Date of service: 01/03/2018 HISTORY: PICC Insertion COMPARISON: 01/01/2018 FINDINGS: LUNGS: No active pulmonary disease. PLEURA: No significant pleural effusion identified, no pneumothorax apparent. CARDIOVASCULAR: Right PICC catheter terminates in the region of the superior vena cava. OSSEOUS STRUCTURES: No significant abnormalities. VISUALIZED UPPER ABDOMEN: Normal. OTHER FINDINGS: None. IMPRESSION: New right PICC catheter terminates in the region of the superior vena cava.
[2018-01-03] MEDS: Vancomycin 1 gm/NS 200 ml 1 GM/200 ML BAG IVPB SCH (20:00)
--- NOTE | 2018-01-03 21:35 | CP.PCM.PN ---
Subjective - Date & Time of Evaluation Date of Evaluation: 01/03/18 Time of Evaluation: 21:34 - Subjective Subjective: pt is having less cough doing well had bm had pcc line will wait for bronchial culture and for antibiotic Objective - Vital Signs/Intake and Output Vital Signs (last 24 hours): Temp Pulse Resp BP Pulse Ox 97.8 F 85 22 119/77 98 01/03/18 16:00 01/03/18 16:00 01/03/18 16:00 01/03/18 16:00 01/03/18 16:00 Intake and Output: 01/03/18 01/04/18 18:59 06:59 Intake Total 720 Balance 720 - Medications Medications: Current Medications Albuterol/Ipratropium (Duoneb 3 Mg/0.5 Mg (3 Ml) Ud) 3 ml INH RQ6 [facility] Last Admin: 01/03/18 19:26 Dose: 3 ml Diazepam (Valium) 2 mg PO BID PRN PRN Reason: Anxiety Last Admin: 01/03/18 10:12 Dose: 2 mg Vancomycin/Sodium Chloride (Vancomycin 1 Gm/Ns 200 Ml) 1 gm in 200 mls @ 133 mls/hr IVPB Q24H [facility] PRN Reason: Protocol Stop: 01/04/18 19:01 Last Admin: 01/03/18 20:00 Dose: 133 mls/hr Insulin Human Regular (Novolin R) 0 unit SC ACHS [facility] PRN Reason: Protocol Last Admin: 01/03/18 17:57 Dose: Not Given Levothyroxine Sodium (Synthroid) 125 mcg PO DAILY@0630 [facility] Last Admin: 01/03/18 06:06 Dose: 125 mcg Metformin HCl (Glucophage) 850 mg PO BID [facility] Last Admin: 01/03/18 17:55 Dose: 850 mg Oxycodone/Acetaminophen (Percocet 5/325 Mg Tab) 1 tab PO BID PRN PRN Reason: Pain, moderate (4-7) Last Admin: 01/03/18 13:29 Dose: 1 tab Pantoprazole Sodium (Protonix Ec Tab) 40 mg PO DAILY [facility] Last Admin: 01/03/18 10:07 Dose: 40 mg Pneumococcal Polyvalent Vaccine (Pneumovax 23 Vaccine) 0.5 ml IM .ONCE ONE Stop: 01/06/18 10:01 Polyethylene Glycol (Miralax) 17 gm PO DAILY [facility] Last Admin: 01/03/18 10:12 Dose: 17 gm Quetiapine Fumarate (Seroquel) 200 mg PO BID [facility] Last Admin: 01/03/18 17:55 Dose: 200 mg Fluticasone/Salmeterol (Advair Diskus 500/50) 1 puff INH RQ12 [facility] Last Admin: 01/03/18 19:26 Dose: 1 puff Tiotropium [place] (Spiriva) 18 mcg INH RQ24 [facility] Last Admin: 01/03/18 07:05 Dose: 18 mcg Topiramate (Topamax) 50 mg PO DAILY [facility] Last Admin: 01/03/18 10:07 Dose: 50 mg - Labs Labs: 01/01/18 14:09 01/01/18 14:09 PT 12.6 SECONDS (9.7-12.2) H 12/30/17 14:49 INR 1.2 12/30/17 14:49 APTT 34 SECONDS (21-34) 12/30/17 14:49
[2018-01-04] MEDS: Albuterol-Ipratrop 3 mg / 0.5 (3 ml) UD INH SCH ×4 (02:04→19:12)
[2018-01-04 02:47] VITALS: RESP 20; O2SAT 99
[2018-01-04] MEDS: Levothyroxine 125 MCG TAB PO SCH (06:07)
[2018-01-04] MEDS: (Novolin R) Insulin Human Regular 100 units/ml vial SC SCH ×4 (07:41→22:00)
[2018-01-04] MEDS: Pantoprazole 40 mg EC Tab PO SCH (09:21)
[2018-01-04] MEDS: POLYETHYLENE GLYCOL 3350 17 GM/Dose PACKET PO SCH (09:21)
[2018-01-04] MEDS: Tiotropium 18 mcg Cap For Inhalation INH SCH (10:15)
[2018-01-04] MEDS: Fluticasone-Salmeterol 500-50mcg Diskus INH SCH ×2 (10:15→19:11)
[2018-01-04] MEDS: Oxycodone/Acetaminophen 5/325 mg Tab PO PRN (15:49)
[2018-01-04 17:03] VITALS: TEMP 97.9
[2018-01-04] MEDS: Vancomycin 1 gm/NS 200 ml 1 GM/200 ML BAG IVPB SCH (21:21)
--- NOTE | 2018-01-04 22:28 | CP.PCM.PN ---
Subjective - Date & Time of Evaluation Date of Evaluation: 01/04/18 Time of Evaluation: 09:36 - Subjective Subjective: Patient is feeling some improvement. Currently on antibiotic. Awaiting for the culture. If the culture is negative, possible discharge plan tomorrow Objective - Vital Signs/Intake and Output Vital Signs (last 24 hours): Temp Pulse Resp BP Pulse Ox 97.9 F 88 20 112/71 99 01/04/18 16:00 01/04/18 16:00 01/04/18 16:00 01/04/18 16:00 01/04/18 16:00 - Medications Medications: Current Medications Diazepam (Valium) 2 mg PO BID PRN PRN Reason: Anxiety Last Admin: 01/04/18 21:21 Dose: 2 mg Insulin Human Regular (Novolin R) 0 unit SC ACHS [facility] PRN Reason: Protocol Last Admin: 01/04/18 17:21 Dose: Not Given Levothyroxine Sodium (Synthroid) 125 mcg PO DAILY@0630 [facility] Last Admin: 01/04/18 06:07 Dose: 125 mcg Metformin HCl (Glucophage) 850 mg PO BID [facility] Last Admin: 01/04/18 17:23 Dose: 850 mg Oxycodone/Acetaminophen (Percocet 5/325 Mg Tab) 1 tab PO BID PRN PRN Reason: Pain, moderate (4-7) Last Admin: 01/04/18 15:49 Dose: 1 tab Pantoprazole Sodium (Protonix Ec Tab) 40 mg PO DAILY [facility] Last Admin: 01/04/18 09:21 Dose: 40 mg Pneumococcal Polyvalent Vaccine (Pneumovax 23 Vaccine) 0.5 ml IM .ONCE ONE Stop: 01/06/18 10:01 Polyethylene Glycol (Miralax) 17 gm PO DAILY [facility] Last Admin: 01/04/18 09:21 Dose: 17 gm Quetiapine Fumarate (Seroquel) 200 mg PO BID [facility] Last Admin: 01/04/18 21:21 Dose: 200 mg Fluticasone/Salmeterol (Advair Diskus 500/50) 1 puff INH RQ12 [facility] Last Admin: 01/04/18 19:11 Dose: 1 puff Tiotropium [place] (Spiriva) 18 mcg INH RQ24 [facility] Last Admin: 01/04/18 10:15 Dose: 18 mcg Topiramate (Topamax) 50 mg PO DAILY [facility] Last Admin: 01/04/18 09:21 Dose: 50 mg - Labs Labs: 01/01/18 14:09 01/01/18 14:09 PT 12.6 SECONDS (9.7-12.2) H 12/30/17 14:49 INR 1.2 12/30/17 14:49 APTT 34 SECONDS (21-34) 12/30/17 14:49
[2018-01-05 05:10] VITALS: PULSE 74
[2018-01-05 05:15] VITALS: BP 116/76
[2018-01-05] MEDS: Levothyroxine 125 MCG TAB PO SCH (05:38)
[2018-01-05] MEDS: Fluticasone-Salmeterol 500-50mcg Diskus INH SCH (07:10)
[2018-01-05] MEDS: (Novolin R) Insulin Human Regular 100 units/ml vial SC SCH ×2 (07:43→12:56)
[2018-01-05] MEDS: Tiotropium 18 mcg Cap For Inhalation INH SCH (07:51)
[2018-01-05] MEDS: Oxycodone/Acetaminophen 5/325 mg Tab PO PRN (09:08)
[2018-01-05] MEDS: Pantoprazole 40 mg EC Tab PO SCH (09:20)
[2018-01-05] MEDS: POLYETHYLENE GLYCOL 3350 17 GM/Dose PACKET PO SCH (09:20)
--- NOTE | 2018-01-05 14:47 | CP.PCM.PN ---
Subjective - Date & Time of Evaluation Date of Evaluation: 01/05/18 Time of Evaluation: 13:30 - Subjective Subjective: Patient seen today, states sob and cough improved, denies any chest pain, dizziness, headache, oob ambulating the hallway without sob a febrile Objective - Vital Signs/Intake and Output Vital Signs (last 24 hours): Temp Pulse Resp BP Pulse Ox 97.9 F 74 20 116/76 99 01/04/18 16:00 01/05/18 05:08 01/04/18 16:00 01/05/18 04:45 01/04/18 16:00 - Medications Medications: Current Medications Diazepam (Valium) 2 mg PO BID PRN PRN Reason: Anxiety Last Admin: 01/05/18 09:20 Dose: 2 mg Insulin Human Regular (Novolin R) 0 unit SC ACHS [facility] PRN Reason: Protocol Last Admin: 01/05/18 12:56 Dose: Not Given Levothyroxine Sodium (Synthroid) 125 mcg PO DAILY@0630 [facility] Last Admin: 01/05/18 05:38 Dose: 125 mcg Metformin HCl (Glucophage) 850 mg PO BID [facility] Last Admin: 01/05/18 09:20 Dose: 850 mg Oxycodone/Acetaminophen (Percocet 5/325 Mg Tab) 1 tab PO BID PRN PRN Reason: Pain, moderate (4-7) Last Admin: 01/05/18 09:08 Dose: 1 tab Pantoprazole Sodium (Protonix Ec Tab) 40 mg PO DAILY [facility] Last Admin: 01/05/18 09:20 Dose: 40 mg Pneumococcal Polyvalent Vaccine (Pneumovax 23 Vaccine) 0.5 ml IM .ONCE ONE Stop: 01/06/18 10:01 Polyethylene Glycol (Miralax) 17 gm PO DAILY [facility] Last Admin: 01/05/18 09:20 Dose: 17 gm Quetiapine Fumarate (Seroquel) 200 mg PO BID [facility] Last Admin: 01/05/18 09:29 Dose: 200 mg Fluticasone/Salmeterol (Advair Diskus 500/50) 1 puff INH RQ12 [facility] Last Admin: 01/05/18 07:10 Dose: 1 puff Tiotropium [place] (Spiriva) 18 mcg INH RQ24 [facility] Last Admin: 01/05/18 07:51 Dose: 18 mcg Topiramate (Topamax) 50 mg PO DAILY [facility] Last Admin: 01/05/18 09:20 Dose: 50 mg - Labs Labs: 01/01/18 14:09 01/01/18 14:09 PT 12.6 SECONDS (9.7-12.2) H 12/30/17 14:49 INR 1.2 12/30/17 14:49 APTT 34 SECONDS (21-34) 12/30/17 14:49 - Constitutional Appears: Well, No Acute Distress - Respiratory Exam Respiratory Exam: Rhonchi, NORMAL BREATHING PATTERN - Cardiovascular Exam Cardiovascular Exam: REGULAR RHYTHM, +S1, +S2 Assessment and Plan - Assessment and Plan (Free Text) Assessment: A/P 57 yr female with pmhx of Asthma, Bipolar Disorder, Bronchitis, COPD, Depression, Diabetes, Emphysema, Gastritis, HTN, admitted with sob/ exc. COPD Patient clinically improved with steroids and neb . treatment and antibiotics bronchial washing -negative blood culture- + for corynebacterium , possible contamination , D/w Dr. Elizabeth, cleared for discharge home today and f/u with Dr. Elizabeth office in 1 week discharge plan discussed with patient who understands and agrees with plan
--- NOTE | 2018-01-05 23:48 | CP.PCM.DIS ---
Provider - Provider Date of Admission: 12/30/17 15:23 Attending physician: Benny Elizabeth MD Time Spent in preparation of Discharge (in minutes): 45 Hospital Course - Lab Results Lab Results: Micro Results 12/30/17 15:17 Blood Blood Culture - Final NO GROWTH AFTER 5 DAYS 12/30/17 15:17 Blood Gram Stain - Final TEST NOT PERFORMED 01/01/18 13:41 Bronchial Washings Bronchial Culture - Final NORMAL ORAL BERNADETTE PRESENT 01/01/18 13:41 Other: Please Indicate Mycobacterial Culture - Preliminary 12/30/17 19:35 Blood Blood Culture - Final Corynebacterium Species 12/30/17 19:35 Blood Gram Stain - Final 01/01/18 13:41 Lung Left Gram Stain - Final Most Recent Lab Values WBC 9.3 K/uL (4.8-10.8) 01/01/18 14:09 RBC 4.26 Mil/uL (3.80-5.20) 01/01/18 14:09 Hgb 11.2 g/dL (11.0-16.0) 01/01/18 14:09 Hct 34.8 % (34.0-47.0) 01/01/18 14:09 MCV 81.6 fL (81.0-99.0) 01/01/18 14:09 MCH 26.4 pg (27.0-31.0) L 01/01/18 14:09 MCHC 32.3 g/dL (33.0-37.0) L 01/01/18 14:09 RDW 15.2 % (11.5-14.5) H 01/01/18 14:09 Plt Count 244 K/uL (130-400) 01/01/18 14:09 MPV 9.7 fL (7.2-11.7) 01/01/18 14:09 Neut % (Auto) 84.6 % (50.0-75.0) H 01/01/18 14:09 Lymph % (Auto) 12.7 % (20.0-40.0) L 01/01/18 14:09 [place] % (Auto) 1.3 % (0.0-10.0) 01/01/18 14:09 Eos % (Auto) 1.0 % (0.0-4.0) 01/01/18 14:09 Baso % (Auto) 0.4 % (0.0-2.0) 01/01/18 14:09 Neut # (Auto) 7.9 K/uL (1.8-7.0) H 01/01/18 14:09 Lymph # (Auto) 1.2 K/uL (1.0-4.3) 01/01/18 14:09 [place] # (Auto) 0.1 K/uL (0.0-0.8) 01/01/18 14:09 Eos # (Auto) 0.1 K/uL (0.0-0.7) 01/01/18 14:09 Baso # (Auto) 0.0 K/uL (0.0-0.2) 01/01/18 14:09 PT 12.6 SECONDS (9.7-12.2) H 12/30/17 14:49 INR 1.2 12/30/17 14:49 APTT 34 SECONDS (21-34) 12/30/17 14:49 Sodium 142 mmol/L (132-148) 01/01/18 14:09 Potassium 3.8 mmol/L (3.6-5.2) 01/01/18 14:09 Chloride 104 mmol/L (98-107) 01/01/18 14:09 Carbon Dioxide 19 mmol/L (22-30) L 01/01/18 14:09 Anion Gap 22 (10-20) H 01/01/18 14:09 BUN 14 mg/dL (7-17) 01/01/18 14:09 Creatinine 0.8 mg/dL (0.7-1.2) 01/01/18 14:09 Est GFR ( Amer) > 60 01/01/18 14:09 Est GFR (Non-Af Amer) > 60 01/01/18 14:09 POC Glucose (mg/dL) 70 mg/dL (65-110) 01/05/18 11:41 Random Glucose 218 mg/dL (65-105) H 01/01/18 14:09 Calcium 9.1 mg/dl (8.6-10.4) 01/01/18 14:09 Total Bilirubin 0.4 mg/dL (0.2-1.3) 01/01/18 14:09 AST 32 U/L (14-36) 01/01/18 14:09 ALT 40 U/L (9-52) 01/01/18 14:09 Alkaline Phosphatase 109 U/L (38-126) 01/01/18 14:09 Troponin I < 0.0120 ng/mL (0.00-0.120) 12/30/17 14:49 NT-Pro-B Natriuret Pep 120 pg/mL (0-900) 12/30/17 14:49 Total Protein 7.7 g/dL (6.3-8.3) 01/01/18 14:09 Albumin 4.1 g/dL (3.5-5.0) 01/01/18 14:09 Globulin 3.6 gm/dL (2.2-3.9) 01/01/18 14:09 Albumin/Globulin Ratio 1.1 (1.0-2.1) 01/01/18 14:09 Urine Color Yellow (YELLOW) 12/30/17 16:07 Urine Clarity Clear (Clear) 12/30/17 16:07 Urine pH 6.0 (5.0-8.0) 12/30/17 16:07 Ur Specific [place] 1.008 (1.003-1.030) 12/30/17 16:07 Urine Protein Negative mg/dL (NEGATIVE) 12/30/17 16:07 Urine Glucose (UA) Normal mg/dL (Normal) 12/30/17 16:07 Urine Ketones Negative mg/dL (NEGATIVE) 12/30/17 16:07 Urine Blood Negative (NEGATIVE) 12/30/17 16:07 Urine Nitrate Negative (NEGATIVE) 12/30/17 16:07 Urine Bilirubin Negative (NEGATIVE) 12/30/17 16:07 Urine Urobilinogen Normal mg/dL (0.2-1.0) 12/30/17 16:07 Ur Leukocyte Esterase Neg [place]/uL (Negative) 12/30/17 16:07 Urine WBC (Auto) < 1 /hpf (0-5) 12/30/17 16:07 Urine RBC (Auto) < 1 /hpf (0-3) 12/30/17 16:07 Ur Squamous Epith Cells 2 /hpf (0-5) 12/30/17 16:07 Urine Bacteria Rare (<OCC) 12/30/17 16:07 Random Vancomycin 6.0 ug/mL 01/01/18 14:09 - Hospital Course Hospital Course: cc; cob hpi: 54yrs old femlae with h/o HTN, cancer breast s/p treatment, DM, bipolar, anxiety , high cholesterol and copd with frequent exacerbations and MRSA bronchitis and pneumonia came to ed with increasing sob and increasing cough and sob. pt was given out patient po antibiotic and she got 2 types of po antibiotics with no improvements. still she has severe sob and cough and thick yellow mucous production and also having frequent chills she has night sweats and chills and fever and no diarrhea now. pt is not feeling very well and increasing weakness and increasing chest tightness noted. pt is using the nebs and bipap but no improvement. she has also sleep apnea using the cpap pmh: HTN, COPD, DM, RYANNE, BIPOLAR AND CA BREAST AND ANXITEY AND LBA AND CHRONIC PAIN AND CERVICAL SPONDYLOSIS SURGERY: LUMPECTOMY CHOLECYSTECTOMY ALLERY: KATJA PERSONAL: PT IS A HEAVE SMOKER BUT QUIT NOW 2 MONTHS NOT A ETOH NO DRUGS FAMILY: MOTHER HAS HTN AND FATHER UNKNOWN SISTER HTN COPD ROS: pt is having increasing cough and sob and wheezing pt is also c/o nausea and no vomiting afebrile but c/o wheezing and fever and chills chest good air entry but wheezing noted cvs regular hs abd soft no edema ext no edema cxr: bilateral copd pattern no active infiltrate noted a/p: 54yrs old femlae with h/o HTN, cancer breast s/p treatment, DM, bipolar, anxiety , high cholesterol and copd with frequent exacerbations and MRSA bronchitis and pneumonia came to er with acute worsening copd likely mrsa bronchitis cant be ruled out will get the sputum if not needed bronchoscope add vanco copd treatment will f/u Patient admitted to the hospital with the acute exacerbation of bronchitis. Underlying MRSA bronchitis cannot be ruled out. She was started on Zosyn and vancomycin. Patient continued to improve. Bronchoscopy was done on 01/01/2018. Bronchoscopic BAL lavages showing no evidence of any bacteria. Patient is clinically improving. She will be discharged home today. She will follow-up as an outpatient. She will continue oral antibiotic as prescribed. Medications reviewed Reconciled. Will follow the patient in 1 week Discharge Plan - Discharge Medications Prescriptions: Fluticasone/Salmeterol 500/50 [Advair Diskus 500/50] 1 puff INH RQ12 #1 puff Albuterol/Ipratropium [Duoneb 3 mg/0.5 mg (3 ml) UD] 1 ea IH Q4H PRN 30 Days neb PRN Reason: asthma Tiotropium [Spiriva] 18 mcg INH RQ24 #1 cap Albuterol HFA [Ventolin HFA 90 mcg/actuation (8 g)] 1 puff IH Q6 #2 inhaler - Follow Up Plan Condition: STABLE Disposition: HOME/ ROUTINE Instructions: Bronchoscopy, Diagnostic, Heart Healthy Diet, Exacerbation of COPD (DC), Albuterol, Fluticasone and Salmeterol, Ipratropium and Albuterol, Tiotropium Additional Instructions: Please f/u with Dr. Elizabeth office in 1 week- call and make appointment continue medication as per Med. rec Referrals: Benny Elizabeth MD [Staff Provider] -
[2018-01-06] MEDS ORDERED: Pneumococcal 23-Valent Vaccine IM ONE (10:00)
--- NOTE | 2018-02-02 07:46 | OP ---
Copied To: eBnny Elizabeth MD Attending MD: Benny Elizabeth MD PROCEDURE DATE: 01/01/2018 PROCEDURE: Bronchoscopic evaluation of the pulmonary bronchial tree. CONSENT: Informed consent from the patient. DESCRIPTION OF PROCEDURE: The patient was brought into the endoscopy room. Under conscious sedation, bronchoscopy was introduced through the right nostril. Vocal cords were visualized. Trachea and the bronchial tree were visualized bilaterally. From the left bronchial tree, thick yellow mucous secretion was removed. Erythematous changes noted in the left bronchial tree. Secretion was identified. BAL was collected from the left bronchial tree. BAL washings were sent to Microbiology and Cytology and also fungal culture. The patient tolerated the procedure well. Postoperative chest x-ray reported normal. The patient is clinically stable. Postoperative orders were done. We will follow up the patient. Benny Elizabeth MD
== END 2018-01-05 14:57 | disposition home or self-care (01) | DRG 166 ==
LOC: C.ER 13:37 → C.9E 15:23 → C.6T 15:50
PROVIDERS: ADMIT Internal Medicine; ATTEND Internal Medicine
PROC: 0BD78ZX Extraction of Left Main Bronchus, Via Natural or Artificial Opening Endoscopic, Diagnostic (ICD-10-PCS; 2018-01-01)
PROC: 0B9L8ZX Drainage of Left Lung, Via Natural or Artificial Opening Endoscopic, Diagnostic (ICD-10-PCS; principal; 2018-01-01 09:00)
DX: J44.0 Chronic obstructive pulmonary disease with (acute) lower respiratory infection (principal); J18.9 Pneumonia, unspecified organism; I10 Essential (primary) hypertension; E11.9 Type 2 diabetes mellitus without complications; E03.9 Hypothyroidism, unspecified; F31.9 Bipolar disorder, unspecified; K59.00 Constipation, unspecified; F41.9 Anxiety disorder, unspecified; J43.9 Emphysema, unspecified; G47.33 Obstructive sleep apnea (adult) (pediatric); E78.00 Pure hypercholesterolemia, unspecified; Z85.3 Personal history of malignant neoplasm of breast; Z87.891 Personal history of nicotine dependence; Z87.01 Personal history of pneumonia (recurrent); Z86.14 Personal history of Methicillin resistant Staphylococcus aureus infection; Z79.899 Other long term (current) drug therapy; Z90.49 Acquired absence of other specified parts of digestive tract

== ENCOUNTER 2018-08-30 11:41 | Outpatient (CLI) | payer MEDICARE | END 2018-08-30 11:42 | disposition home or self-care (01) | LOC: C.RADIC 11:41 | DX: M17.4 Other bilateral secondary osteoarthritis of knee (principal); S93.401A Sprain of unspecified ligament of right ankle, initial encounter ==

== ENCOUNTER 2018-09-09 16:41 | Emergency (ER) | payer MEDICARE ==
[2018-09-09 16:41] VITALS: BMI 37.3
[2018-09-09] MEDS ORDERED: Albuterol 0.083% Inhal Sol (2.5 mg/3 mL) UD IH STA (18:02)
[2018-09-09] MEDS ORDERED: Albuterol-Ipratrop 3 mg / 0.5 (3 ml) UD INH STA (18:03)
[2018-09-09 18:16] LABS: BASO # 0.1 K/uL (0.0-0.2); BASO % 0.8 % (0.0-2.0); EOS # 0.4 K/uL (0.0-0.7); EOS % 5.1 % (0.0-4.0); LYMPH # 2.8 K/uL (1.0-4.3); LYMPH % 35.7 % (20.0-40.0); MEAN CELL VOLUME 81.8 fL (81.0-99.0); MEAN CORPUSCULAR HEMOGLOBIN 26.2 pg (27.0-31.0); MEAN PLATELET VOLUME 9.6 fL (7.2-11.7); MONO # 0.6 K/uL (0.0-0.8); MONO % 7.2 % (0.0-10.0); NEUT % 51.2 % (50.0-75.0); RBC 4.57 Mil/uL (3.80-5.20); RED CELL DISTRIBUTION WIDTH 15.3 % (11.5-14.5); WHITE BLOOD COUNT 7.8 K/uL (4.8-10.8)
--- NOTE | 2018-09-09 18:19 | RAD ---
Date of service: 09/09/2018 PROCEDURE: CHEST RADIOGRAPH, 1 VIEW HISTORY: SOB COMPARISON: 01/03/2018. FINDINGS: LUNGS: Clear. PLEURA: No pneumothorax or pleural fluid seen. CARDIOVASCULAR: No aortic atherosclerotic calcification present. Normal. OSSEOUS STRUCTURES: No significant abnormalities. VISUALIZED UPPER ABDOMEN: Normal. OTHER FINDINGS: None. IMPRESSION: No active disease.No significant interval change compared to the prior examination(s).
[2018-09-09] MEDS ORDERED: Albuterol-Ipratrop 3 mg / 0.5 (3 ml) UD ONE ×2 (18:24→19:04)
[2018-09-09] MEDS ORDERED: Albuterol 0.083% Inhal Sol (2.5 mg/3 mL) UD ONE ×2 (18:25→19:01)
[2018-09-09 18:30] LABS: ALB/GLOB RATIO 1.1 (1.0-2.1); ALBUMIN 4.4 g/dL (3.5-5.0); ALT/SGPT 43 U/L (9-52); AST/SGOT 43 U/L (14-36); BLOOD UREA NITROGEN 11 mg/dL (7-17); CALCIUM 9.5 mg/dl (8.6-10.4); GFR NON-AFRICAN AMERICAN > 60
[2018-09-09 18:42] LABS: B-TYPE NATRIURETIC PEPTIDE 127 pg/mL (0-900); CK-MB 1.03 ng/mL (0.0-3.38)
--- NOTE | 2018-09-09 18:45 | C.PDOC ---
History Of Present Illness Patient presents to ED c/o SOB, wheezing, productive cough, chills, and nasal congestion for approx 1.5 weeks. She states she was given antibiotics (Amoxicillin) yesterday by her PMD Dr. Elizabeth, but continues to feel SOB. Patient also had 1 episode of vomiting and abdominal cramping since starting Amox. She denies chest pain, palpitations, fever, dysuria/hematuria. PMHx: DM, asthma/copd, anxiety/bipolar disorder, HTN, hyperlipidemia, pneumonia, seizure disorder Time Seen by Provider: 09/09/18 17:50 Chief Complaint (Nursing): Shortness Of Breath History Per: Patient History/Exam Limitations: no limitations Onset/Duration Of Symptoms: Days Current Symptoms Are (Timing): Still Present Current Respiratory Medications: See Home Med List Severity: Moderate Past Medical History Reviewed: Historical Data, Nursing Documentation, Vital Signs Vital Signs: Last Vital Signs Temp 98.7 F 09/09/18 17:24 Pulse 84 09/09/18 17:24 Resp 18 09/09/18 17:24 BP 113/70 09/09/18 17:24 Pulse Ox 97 09/09/18 17:24 - Medical History PMH: Anemia, Anxiety, Arthritis (L ANKLE FX 2 YRS AGO), Asthma, Bipolar Disorder, Bronchitis, COPD, Depression, Diabetes, Fibromyalgia, Gastritis, HTN, Hypercholesterolemia, Hypothyroidism, Malignancy (uterine and breast ca), Pneumonia, Schizophrenia, Seizures Surgical History: Cholecystectomy Denies: Endoscopy - [facility] (12/30/17) CHOLECYSTECTOMY (12/21/13) DRAINAGE OF LEFT LUNG, ENDO, DIAGN (12/30/17) ENDOSCOPIC BRONCHIAL BX (06/26/14) ESOPHAGOGASTRODUODENOSCOPY [EGD] W/CLOSED BIOPSY (12/11/13) GROUP PSYCHOTHERAPY (06/28/18) INDIVID PSYCHOTHERAP NEC (12/25/14) NON-INVASIVE MECHANICAL VENTILATION (07/24/13) OP RED-INT FIX TIB/FIBUL (07/24/13) OPEN ROBOTIC ASSISTED PROCEDURE (12/21/13) OTHER BRONCHOSCOPY (04/03/13) OTHER GROUP THERAPY (12/25/14) PSYCHIAT DRUG THERAP NEC (01/07/15) Family History: States: No Known Family Hx - Social History Hx Tobacco Use: No Hx Alcohol Use: No Hx Substance Use: No - Immunization History Hx Tetanus Toxoid Vaccination: No Hx Influenza Vaccination: No Hx Pneumococcal Vaccination: Yes Review Of Systems Constitutional: Positive for: Chills Cardiovascular: Negative for: Chest Pain, Palpitations Respiratory: Positive for: Cough, Shortness of Breath, Wheezing Gastrointestinal: Positive for: Nausea, Vomiting, Abdominal Pain. Negative for: Diarrhea Genitourinary: Negative for: Dysuria, Hematuria, Vaginal Discharge, Vaginal Bleeding Skin: Negative for: Rash Neurological: Negative for: Headache, Dizziness Physical Exam - Physical Exam Appears: Well, Non-toxic, Other (coughing intermittnently, speaking in full sentences) Skin: Normal Color, Warm, Dry Oral Mucosa: Moist Cardiovascular: Rhythm Regular Respiratory: No Accessory Muscle Use, No Rales, No Rhonchi, Wheezing (expiratory wheezing B/L ) Gastrointestinal/Abdominal: Normal Exam, Bowel Sounds, Soft, No Tenderness Extremity: Normal ROM, No Pedal Edema, No Calf Tenderness Pulses: Left Dorsalis Pedis: Normal, Right Dorsalis Pedis: Normal Neurological/Psych: Oriented x3 ED Course And Treatment - Laboratory Results Result Diagrams: 09/09/18 18:12 09/09/18 18:12 Lab Results: Total Bilirubin 0.3 mg/dL (0.2-1.3) 09/09/18 18:12 AST 43 U/L (14-36) H 09/09/18 18:12 ALT 43 U/L (9-52) 09/09/18 18:12 Alkaline Phosphatase 132 U/L (38-126) H D 09/09/18 18:12 Total Protein 8.3 g/dL (6.3-8.3) 09/09/18 18:12 Albumin 4.4 g/dL (3.5-5.0) 09/09/18 18:12 Globulin 3.9 gm/dL (2.2-3.9) 09/09/18 18:12 Albumin/Globulin Ratio 1.1 (1.0-2.1) 09/09/18 18:12 ECG: Interpreted By Me, Viewed By Me (NSR 87bpm, normal axis, no acute ST/T wave changes) ECG Interpretation: Normal O2 Sat by Pulse Oximetry: 97 (RA) Pulse Ox Interpretation: Normal - Other Rad CXR X-Ray: Viewed By Me, Read By Radiologist Interpretation: Accession No. : [id number]. Patient Name / ID : JAMIE GUERRERO / [id number]. Exam Date : 09/09/2018 18:01:29 ( Approved ). Study Comment : Sex / Age : F / [id number]. Creator : Osman Mcintosh MD. Dictator : Osman Mcintosh MD. International Tax Manager : Accounts Executive : Osman Mcintosh MD. Approver2 : Report Date : 09/09/2018 18:16:26. My Comment : . Date of service: 09/09/2018. PROCEDURE: CHEST RADIOGRAPH, 1 VIEW. HISTORY: SOB. COMPARISON: 01/03/2018. FINDINGS: LUNGS: Clear. PLEURA: No pneumothorax or pleural fluid seen. CARDIOVASCULAR: No aortic atherosclerotic calcification present. Normal. OSSEOUS STRUCTURES: No significant abnormalities. VISUALIZED UPPER ABDOMEN: Normal. OTHER FINDINGS: None. IMPRESSION: No active disease.No significant interval change compared to the prior examination(s). Progress Note: Blood work, CXR, EKG ordered and reviewed. Patient given IV solumedrol, albuterol neb treatments. Disposition - Disposition Disposition Time: 19:00 Condition: STABLE Forms: [facility] ([place]) - Clinical Impression Clinical Impression: Wheezing, Dyspnea, Cough Physician Patient Turnover Patient Signed Over To: Castillo Beatty Handoff Comments: pending reassessment
[2018-09-09 20:30] VITALS: BP 131/72; PULSE 81; RESP 19; TEMP 98; O2SAT 96
--- NOTE | 2018-09-12 14:47 | CARD ---
APPROVED REPORT Date of service: 09/09/2018 EKG Measurement Heart [id number] <Conclusion> Normal sinus rhythm Normal ECG
== END 2018-09-09 20:32 | disposition home or self-care (01) ==
LOC: C.ER 16:41
DX: J45.909 Unspecified asthma, uncomplicated (principal); I10 Essential (primary) hypertension; E11.9 Type 2 diabetes mellitus without complications; E78.00 Pure hypercholesterolemia, unspecified; Z85.3 Personal history of malignant neoplasm of breast; Z85.42 Personal history of malignant neoplasm of other parts of uterus; Z87.891 Personal history of nicotine dependence
CPT/HCPCS: 71045; 80053; 82550; 82553; 83880; 84484; 85025; 93005; 94150; 94640; 96374; 99285; J2930